=== PATIENT | female | born 1980 | race African-American/Black ===

== ENCOUNTER 2020-04-30 16:37 | Outpatient (REF) | payer OTHER, SELFPAY | END 2020-04-30 16:38 | disposition home or self-care (01) | LOC: HO.LAB 16:37 | PROVIDERS: Visit Provider Internal Medicine | DX: Z20.828 Contact with and (suspected) exposure to other viral communicable diseases (principal) | CPT/HCPCS: C9803; U0003 ==

== ENCOUNTER 2020-05-10 09:38 | Outpatient (REF) | payer OTHER, SELFPAY | END 2020-05-10 09:39 | disposition home or self-care (01) | LOC: HO.LAB 09:38 | PROVIDERS: Visit Provider Internal Medicine | DX: Z20.828 Contact with and (suspected) exposure to other viral communicable diseases (principal) | CPT/HCPCS: C9803; U0003 ==

== ENCOUNTER 2020-08-02 13:18 | Outpatient (REF) | payer OTHER, SELFPAY | END 2020-08-02 13:19 | disposition home or self-care (01) | LOC: HO.LAB 13:18 | PROVIDERS: Visit Provider Internal Medicine | DX: Z20.822 Contact with and (suspected) exposure to COVID-19 (principal) | CPT/HCPCS: 36415; C9803; U0003; U0005 ==

== ENCOUNTER → 2020-10-01 08:35 | Outpatient (BNVA) | payer OTHER, SELFPAY | PROVIDERS: PCP Nurse Practitioner Family; Visit Provider Surgery | DX: E66.01 Morbid (severe) obesity due to excess calories (principal); Z68.41 Body mass index [BMI] 40.0-44.9, adult | CPT/HCPCS: Q3014 ==

== ENCOUNTER → 2020-10-04 13:34 | Outpatient (REF) | payer OTHER, SELFPAY ==
--- NOTE | ~2020-10-04 | XR_ITS ---
EXAMINATION: XR CHEST CLINICAL INFORMATION: Obesity COMPARISON: Previous chest x-ray June 2018 TECHNIQUE: 2 views of the chest were obtained. FINDINGS: No significant abnormality is noted involving the heart, lungs, mediastinum, bony thorax or soft tissues. XR/XR chest 2V IMPRESSION: Unremarkable examination.
--- NOTE | 2020-10-04 14:24 | ECG_ITS ---
Test Reason : E66.01 Blood Pressure : / mmHG Vent. Rate : 076 BPM Atrial Rate : 076 BPM P-R Int : 118 ms QRS Dur : 078 ms QT Int : 390 ms P-R-T Axes : 067 071 045 degrees QTc Int : 438 ms Sinus rhythm with marked sinus arrhythmia Otherwise normal ECG No previous ECGs available Referred By: Samir Villafuerte Electronically Signed By:Delvis Hayden
[2020-10-04 14:50] LABS: MANUAL DIFF FLAG NO
[2020-10-04 14:53] LABS: Basophils Percent Auto 0.6 % (0-2); Eosinophils Absolute Auto 0.2 X10*3/uL (0.0-0.4); Eosinophils Percent Auto 4.2 % (0-4); Hematocrit 38.4 % (37-47); Imm Gran Abs Auto 0.01 X10*3/uL (0.00-0.03); Imm Gran Pct Auto 0.2 % (0.0-0.4); Lymphocytes Percent Auto 41.6 % (20-40); Mean Corpuscular HGB Conc 33.9 g/dl (31.0-35.0); Mean Corpuscular Volume 82.8 fL (80-98); Mean Platelet Volume 11.6 fL (9.4-12.3); Monocytes Absolute Auto 0.3 X10*3/uL (0.1-1.2); Monocytes Percent Auto 6.2 % (2-11); Neutrophils Absolute Auto 2.2 X10*3/uL (2.0-8.3); Neutrophils Percent Auto 47.2 % (45-73); Platelet Count 222 X10*3/uL (160-400); Red Blood Count 4.64 X10*6/uL (4.20-5.50); Red Cell Distribution Width 13.2 % (11.0-16.0); White Blood Count 4.7 X10*3/uL (4.8-10.8)
[2020-10-04 15:03] LABS: Estimated Average Glucose 108 mg/dL; Hemoglobin A1c % 5.4 %
[2020-10-04 15:16] LABS: Alanine Aminotransferase 25 U/L (0-31); Alkaline Phosphatase 66 U/L (39-117); Anion Gap 13 (12-20); Aspartate Amino Transferase 19 U/L (5-31); Bilirubin Total 1.9 mg/dL (0.0-1.0); Blood Urea Nitrogen 15 mg/dL (9-16); C Reactive Protein 0.21 mg/dL (< or = 0.50); Calcium 8.8 mg/dL (8.4-10.2); Carbon Dioxide 25 mmol/L (22-29); Chloride 108 mmol/L (96-108); Cholesterol 243 mg/dL; Estimated Glomerular Filt Rate > 60; Glucose Random 91 mg/dL (60-115); HDL Cholesterol 74 mg/dL; Iron 84 mcg/dL (30-160); LDL Cholesterol Calculated 144 mg/dl; Percent Iron Saturation 24 % (15-50); Potassium 4.2 mmol/L (3.3-5.1); Sodium 142 mmol/L (135-145); Total Iron Binding Capacity 348 mcg/dL (228-428); Total Protein 6.8 g/dL (6.5-8.0); Triglycerides 129 mg/dL; Unsaturated Iron Binding 264 ug/dL
[2020-10-04 15:39] LABS: Ferritin 23 ng/mL (10-122); TSH reflex Free T4 1.65 uIU/mL (0.32-4.0); Vitamin D 25-OH Total 13.1 ng/mL (>30)
[2020-10-04 15:46] LABS: Folate 8.1 ng/mL (> or = 4.0); Vitamin B12 370 pg/mL (200-900)
[2020-10-05 08:51] LABS: Insulin Level Total 7.8 uIU/mL
[2020-10-05 14:11] LABS: H Pylori Breath Test NOT DETECTED (NOT DETECTED)
[2020-10-05 19:47] LABS: Calcium (PTHI) 9.1 mg/dL (8.6-10.2); PTHI 115 pg/mL (14-64)
[2020-10-07 06:51] LABS: Zinc 74 mcg/dL (60-130)
[2020-10-07 23:03] LABS: Vitamin A 75 mcg/dL (38-98)
[2020-10-08 11:56] LABS: Vitamin B1 12 nmol/L (8-30)
== END ==
LOC: HO.CARD 13:34
PROVIDERS: Surgery; PCP Nurse Practitioner Family; Referring Provider General Practice; Visit Provider Physician Assistant
DX: E66.01 Morbid (severe) obesity due to excess calories (principal)
CPT/HCPCS: 36415; 71046; 80053; 80061; 82306; 82607; 82728; 82746; 83013; 83036; 83525; 83540; 83970; 84425; 84443; 84590; 84630; 85025; 86140; 93005; 99211

== ENCOUNTER 2020-10-21 08:39 | Outpatient (REF) | payer OTHER, SELFPAY ==
--- NOTE | ~2020-10-21 | US_ITS ---
EXAMINATION: US COMPLETE ABDOMEN WITH LIVER ELASTOGRAPHY CLINICAL INFORMATION: Bariatric service evaluation. E66.01 COMPARISON: None. TECHNIQUE: Real-time imaging of the abdominal viscera. Noninvasive ultrasound liver fibrosis assessment is performed using Steph ElastPQ point quantification shear wave elastography (pSWE) with a C5-2 MHz transducer. Multiple elastography samples are obtained. FINDINGS: PANCREAS: The visualized pancreas is normal in size and contour and echogenicity. No pancreatic ductal distention. The distal body and tail are obscured by bowel gas and not imaged. ABDOMINAL AORTA: The proximal and mid abdominal aorta appears normal in caliber. The distal ureter is obscured by bowel gas and not imaged. INFERIOR VENA CAVA: Visualized portions are normal. LIVER: The liver is within normal size and smooth in contour. Parenchymal echogenicity is within normal. There is no focal hepatic parenchymal lesion or intrahepatic biliary ductal dilatation. The right lobe measures 17.1 cm in length. The left lobe measures 13.9 cm in length. Portal flow is towards the liver (hepatopetal). Shear wave liver elastography median stiffness is 1.25 m/s (reference: normal median stiffness is 1.3 m/s or less). IQR/median stiffness to assess sampling precision is 0.16 (reference: good quality data set is IQR/median stiffness of 0.15 or less). GALLBLADDER: There are mobile dependent calculi in the gallbladder. There is no gallbladder dilatation or wall thickening or pericholecystic fluid. Negative sonographic Miller's sign. COMMON BILE DUCT: Normal in caliber measuring 0.6 cm in diameter. No visible ductal calculus or ductal sludge. RIGHT KIDNEY: Normal. No hydronephrosis. No renal calculi or focal parenchymal lesions. The kidney measures 10.2 cm in maximum dimension. LEFT KIDNEY: Normal. No hydronephrosis. No renal calculi or focal parenchymal lesions. The kidney measures 9.6 cm in maximum dimension. SPLEEN: Normal. The spleen measures 9.7 cm in maximum dimension. FREE FLUID: None. US/US abdomen comp w elastography IMPRESSION: 1. Cholelithiasis. No gallbladder wall thickening or ductal dilatation. 2. Liver elastography: Measurements are consistent with a high probability of normal liver stiffness. 3. Bowel gas obscures portions of pancreas and distal abdominal aorta. REFERENCE: Society of Radiologists in Ultrasound Liver Stiffness Thresholds (2019): LIVER STIFFNESS THRESHOLDS: *Liver Stiffness equal or less than 1.3 m/s: High probability of being normal. *Liver Stiffness less than 1.7 m/s: In the absence of other known clinical signs, rules out compensated advanced chronic liver disease. *Liver Stiffness 1.7-2.1 m/s: Suggestive of compensated advanced chronic liver disease but need further test for confirmation. *Liver Stiffness over 2.1 m/s: Rules in compensated advanced chronic liver disease. *Liver Stiffness over 2.4 m/s: Suggestive of clinically significant portal hypertension.
== END 2020-10-21 08:40 | disposition home or self-care (01) ==
LOC: HO.US 08:39
PROVIDERS: Visit Provider Surgery
DX: Z01.818 Encounter for other preprocedural examination (principal); E66.01 Morbid (severe) obesity due to excess calories; K21.9 Gastro-esophageal reflux disease without esophagitis
CPT/HCPCS: 76705; 76981

== ENCOUNTER → 2020-10-22 08:33 | Outpatient (BNVA) | payer OTHER, SELFPAY | PROVIDERS: PCP Nurse Practitioner Family; Visit Provider Dietitian, Registered | DX: E66.01 Morbid (severe) obesity due to excess calories (principal); Z68.41 Body mass index [BMI] 40.0-44.9, adult | CPT/HCPCS: 97802 ==

== ENCOUNTER → 2020-10-27 08:24 | Outpatient (BNVA) | payer OTHER, SELFPAY | PROVIDERS: PCP Nurse Practitioner Family; Visit Provider Surgery | DX: E66.01 Morbid (severe) obesity due to excess calories (principal); Z68.41 Body mass index [BMI] 40.0-44.9, adult; Z71.3 Dietary counseling and surveillance | CPT/HCPCS: Q3014 ==

== ENCOUNTER 2020-11-02 08:14 | Outpatient (REF) | payer OTHER, SELFPAY ==
--- NOTE | ~2020-11-02 | FL_ITS ---
EXAMINATION: XR GI SERIES CLINICAL INFORMATION: Obesity. COMPARISON: None TECHNIQUE: Upper GI was performed using thin and thick barium and effervescent granules. FINDINGS: Esophageal motility is normal. No gastroesophageal reflux or hernia is seen. The stomach and duodenum are normal-appearing. No fold thickening, mass, ulcer or stricture is seen. FLUOROSCOPY TIME: 0.6 minutes DOSE AREA PRODUCT: 10 ellis per centimeter squared. 20 saved fluoroscopic images. Total dose 36 mgy. FL/FL upper GI series IMPRESSION: Unremarkable examination.
== END 2020-11-02 08:15 | disposition home or self-care (01) ==
LOC: HO.XRAY 08:14
PROVIDERS: PCP General Practice; Visit Provider Surgery
DX: Z01.818 Encounter for other preprocedural examination (principal); E66.01 Morbid (severe) obesity due to excess calories; K21.9 Gastro-esophageal reflux disease without esophagitis
CPT/HCPCS: 74240

== ENCOUNTER 2020-11-08 13:05 | Outpatient (REF) | payer OTHER, SELFPAY ==
--- NOTE | ~2020-11-08 | MM_ITS ---
EXAMINATION: MM DIAGNOSTIC DIGITAL BREAST TOMOSYNTHESIS, BILATERAL CLINICAL INFORMATION: Due for yearly. 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 No known family history breast cancer. Age 40. The lifetime risk of breast cancer based on the Tyrer-Cuzick Model is 12%. COMPARISON: Mammography: 11/05/2019, 05/06/2019, 4 03/19/2019 (baseline diagnostic). TECHNIQUE: Digital breast tomosynthesis is performed in both the craniocaudal and mediolateral oblique views along with computer-aided detection (CAD). Synthesized 2D images are generated from the tomosynthesis. Additional views are provided: Left CC x2, left MLO x2, right CC, right MLO x2. FINDINGS: The breasts are almost entirely fatty (ACR BI-RADS breast composition Category a). Background stromal and fibroglandular densities are stable. The duct ectasia anterior right breast is similar to prior studies and now considered benign. There is no developing density or interval mass or architectural abnormality. No abnormal calcifications. The axilla and skin contours are unremarkable. Results are provided to the patient at time of visit by the technologist. MM/MM tomosynthesis diagnostic BI IMPRESSION: There are no significant changes from prior studies. Right anterior duct ectasia stable. ASSESSMENT: BI-RADS 2: Benign RECOMMENDATION: Routine annual mammography screening, by age 40, or earlier as clinical risk factors warrant. This patient's information was entered into a reminder system with a target due date for their next mammogram.
== END 2020-11-08 13:06 | disposition home or self-care (01) ==
LOC: HO.MAMMO 13:05
PROVIDERS: PCP General Practice; Visit Provider Nurse Practitioner Family
DX: N60.41 Mammary duct ectasia of right breast (principal)
CPT/HCPCS: 77062; 77066

== ENCOUNTER → 2020-12-06 07:06 | Outpatient (BNVA) | payer OTHER, SELFPAY | PROVIDERS: PCP General Practice; Visit Provider Surgery | DX: E66.01 Morbid (severe) obesity due to excess calories (principal); Z68.41 Body mass index [BMI] 40.0-44.9, adult | CPT/HCPCS: Q3014 ==

== ENCOUNTER → 2020-12-22 08:09 | Outpatient (BNVA) | payer OTHER, SELFPAY | PROVIDERS: PCP General Practice; Visit Provider Dietitian, Registered ==

== ENCOUNTER → 2020-12-24 09:52 | Outpatient (BNVA) | payer OTHER, SELFPAY | PROVIDERS: PCP General Practice; Referring Provider General Practice; Visit Provider Dietitian, Registered ==

== ENCOUNTER → 2021-01-19 07:46 | Outpatient (BNVA) | payer OTHER, SELFPAY | PROVIDERS: PCP General Practice; Visit Provider Surgery | CPT/HCPCS: Q3014 ==

== ENCOUNTER → 2021-01-20 08:21 | Outpatient (BNVA) | payer OTHER, SELFPAY | PROVIDERS: PCP General Practice; Visit Provider Physician Assistant ==

== ENCOUNTER → 2021-01-24 09:37 | Outpatient (BNVA) | payer OTHER, SELFPAY | PROVIDERS: Visit Provider Physician Assistant ==

== ENCOUNTER → 2021-01-25 08:39 | Outpatient (BNVA) | payer OTHER, SELFPAY | PROVIDERS: Visit Provider Dietitian, Registered | DX: E66.01 Morbid (severe) obesity due to excess calories (principal) | CPT/HCPCS: 97803 ==

== ENCOUNTER → 2021-02-07 14:04 | Outpatient (BNVA) | payer OTHER, SELFPAY | PROVIDERS: PCP General Practice; Referring Provider General Practice; Visit Provider Physician Assistant Surgical ==

== ENCOUNTER → 2021-02-14 08:13 | Outpatient (BNVA) | payer OTHER, SELFPAY | PROVIDERS: PCP General Practice; Visit Provider Physician Assistant | DX: E66.01 Morbid (severe) obesity due to excess calories (principal); Z68.41 Body mass index [BMI] 40.0-44.9, adult | CPT/HCPCS: Q3014 ==

== ENCOUNTER → 2021-02-15 08:19 | Outpatient (BNVA) | payer OTHER, SELFPAY | PROVIDERS: Visit Provider Physician Assistant ==

== ENCOUNTER 2021-02-18 14:24 | Emergency (ER) | payer OTHER, SELFPAY ==
--- NOTE | ~2021-02-18 | XR_ITS ---
EXAMINATION: XR CHEST CLINICAL INFORMATION: SOB. COMPARISON: None TECHNIQUE: Frontal view of the chest was obtained. FINDINGS: No significant abnormality is noted involving the heart, lungs, mediastinum, bony thorax or soft tissues. XR/XR chest 1V IMPRESSION: Unremarkable chest exam.
--- NOTE | ~2021-02-18 | CT_ITS ---
EXAMINATION: CT ANGIOGRAM OF THE CHEST WITH AND WITHOUT CONTRAST (CT PULMONARY ANGIOGRAM FOR PE) CLINICAL INFORMATION: Reason for Exam SOB, elevated ddimer COMPARISON: None TECHNIQUE: Prior to contrast administration, noncontrast localization images were obtained. Subsequently, multidetector volumetric imaging was performed from the thoracic inlet to below the diaphragms following the administration of 80 mL Omnipaque 350 intravenous contrast. No contrast reaction reported Sagittal, coronal, and MIP oblique sagittal reformatted images were obtained on the CT workstation, uploaded to PACS, and reviewed. This CT examination was performed using dose optimization techniques as appropriate, variously including the following: *Automated exposure control *Adjustment of mA and/or kV according to patient size (this includes techniques or standardized protocols for targeted exams where dose is matched to indication/reason for exam; i.e. extremities or head) *Use of iterative reconstruction technique Total exam dose-length product 537 mGy-cm FINDINGS: QUALITY OF STUDY/CONTRAST BOLUS: Satisfactory. PULMONARY ARTERIES: No central or segmental pulmonary emboli. THORACIC AORTA: No aneurysm or dissection. LUNG: The lungs are well-expanded and clear of acute pneumonic process. There is platelike atelectasis in left lung base. There is platelike atelectasis left lower lobe posterior segment. PLEURA: No pleural effusion or pneumothorax. MEDIASTINUM: The thyroid lobes are symmetrical. The central trachea and the bronchi are widely patent. No abnormal size mediastinal or hilar lymph nodes. No pedicle effusion. No evidence of septal bowing or right heart strain. CHEST WALL/AXILLA: No axillary or internal mammary lymphadenopathy. OSSEOUS STRUCTURES: No acute or suspicious osseous abnormality. UPPER ABDOMEN: Visualized liver, spleen, pancreas and bilateral adrenal glands are unremarkable. No reflux of contrast into the hepatic veins to suggest elevated right heart pressures. CT/CT angio chest PE protocol IMPRESSION: No evidence of PE. No evidence of aortic dissection or aneurysm. Platelike atelectasis left lower lobe posterior segment VTE: Negative.
[2021-02-18 14:36] VITALS: BP 126/75; PULSE 100; RESP 30; TEMP 36.6; O2SAT 99; BMI 41.3
--- NOTE | 2021-02-18 14:37 | ED_ITS ---
HPI - Asthma General Chief Complaint: Asthma Stated Complaint: ASTHMA DIFF BREATHING Time Seen by Provider: 02/18/21 14:37 Source: patient Mode of arrival: ambulatory Limitations: no limitations History of Present Illness HPI Narrative: 40-year-old female presents with 2 days of wheezing and shortness of breath that she attributes to her asthma. Patient states that the recent humidity has increased her asthma and she often responses sway with an asthma exacerbation. Patient did work today, she works in a preschool, so her last nebulizer treatment was 7:00 a.m. this morning. Patient has been using her albuterol inhaler all day, and now she is almost out of it. Patient has had to go on prednisone burst in the past for her asthma No upper respiratory infection symptoms, no cough, no runny nose, no sore throat or ear pain, no fevers . She is not a smoker. No recent travel, no leg pain, no unilateral calf swelling, no estrogen use, no history of blood clots. Patient is vaccinated for COVID. MD complaint: asthma attack Onset (ago): day(s) (2) Severity: severe and similar to prior Context: other (wearther change/humidity) Associated symptoms: none Asthma History: history of frequent attacks Treatments Prior to Arrival: inhaled bronchodilator Related Data Current Asthma Therapy: inhaled bronchodilator Home Medications Medication Instructions Recorded Confirmed albuterol sulfate 90 mcg/actuation 2 puff INHALATION Q6H PRN 10/01/20 10/01/20 aerosol inhaler clonazepam 0.5 mg tablet 0.25 mg PO BEDTIME 10/01/20 10/01/20 oxcarbazepine 600 mg 600 mg PO DAILY 10/01/20 10/01/20 tablet,extended release 24 hr Previous Rx's Medication Instructions Recorded cholecalciferol (vitamin D3) 125 125 mcg PO DAILY #30 cap 10/08/20 mcg (5,000 unit) capsule mecobalamin (vitamin B12) 1,000 1,000 mcg SUBLINGUAL DAILY #30 tab 10/08/20 mcg disintegrating tablet,sublingual albuterol sulfate 90 mcg/actuation 2 puff INHALATION Q4-6H PRN #8.5 g 02/18/21 aerosol inhaler prednisone 20 mg tablet 60 mg PO DAILY 5 Days #15 tab 02/18/21 Allergies Allergy/AdvReac Type Severity Reaction Status Date / Time No Known Allergies Allergy Verified 02/18/21 14:39 [No Known Allergies*] Review of Systems Constitutional: Constitutional: Denies body ache(s), Denies chills, Denies fatigue, Denies fever(s), Denies headache(s), Denies malaise and Denies weakness Eyes: Eyes: Denies diplopia ENT: Denies vertigo, Denies dizziness, Denies otalgia, Denies headache(s), Denies mouth pain, Denies post nasal drip, Denies sinus pain, Denies sinus pressure, Denies sore throat and Denies throat swelling Cardiovascular: Cardiovascular: Denies chest pain, Denies syncope, Denies leg edema, Denies lightheadedness, Denies Loss of Consciousness, Denies palpitations and Reports dyspnea Respiratory: Respiratory: Denies chest congestion, Denies cough, Reports dyspnea and Reports wheezing Gastrointestinal: Gastrointestinal: Reports abdominal pain, Denies hematochezia, Denies constipation, Denies diarrhea and Denies vomiting Musculoskeletal: Musculoskeletal: Reports no additional musculoskeletal complaints Neurologic: Denies confusion, Denies vertigo, Denies dizziness, Denies syncope, Denies headache(s) and Denies weakness Psychiatric: Psychiatric: Denies anxiety, Denies confusion and Denies depression Endocrine: Endocrine: Denies fatigue and Denies palpitations Allergic/Immunologic: Allergic/Immunologic: Denies throat swelling and Reports wheezing PMFSH Past Medical History Medical History Anxiety Asthma Back pain Insomnia Morbid obesity Surgical History Hx of section Family History Family History (Updated 10/01/20 @ 07:29 by SESAR Rodriguez) Mother Hypertension Diabetes Father No problems noted. Sister No problems noted. Son No problems noted. Daughter No problems noted. Social History Social History (Updated 10/01/20 @ 07:29 by SESAR Rodriguez) Alcohol intake: current Alcohol intake frequency: a few times a month Advance Directives: No Advance Directives Information Provided: Yes Patient : No Physical Exam Vital Signs: Vital Signs: Last Vital Signs Temp 97.8 F 02/18/21 14:36 Pulse 82 02/18/21 16:52 Resp 19 02/18/21 16:52 BP 109/77 02/18/21 16:52 Pulse Ox 96 02/18/21 16:52 Body Mass Index 41.3 Const: General: alert, awake and acute distress mild and respiratory; No confusion Nutritional Appearance: obese centrally obese Orientation/consciousness: patient oriented x3 and No confusion Limitations: no limitations HENMT: Head: Yes normal to inspection, Yes normocephalic and Yes atraumatic Ears: hearing grossly normal bilaterally, external ears normal, TM's normal bilaterally and EAC's normal General nose exam: Normal external nose present Face and sinus: Yes normal facial exam and Yes sinuses nontender Mouth: N ormal oral and palatal mucosa present Throat: Yes posterior oropharynx normal Eyes: Conjunctivae: conjunctivae normal Pupils: Equal, round and reactive pupils present EOM: EOMs intact bilaterally Neck: Neck: Yes full ROM, Yes no lymphadenopathy and Yes supple Resp: Effort & Inspection: able to speak in complete sentences, no audible wheezes, no cough, no nasal flaring, no pursed lip breathing, retractions, tachypneic and no tripod positioning Auscultation: diminished lung sounds (only mildly) diffuse Cardio: Rate: regular rate Rhythm: regular rhythm Heart sounds: S1 normal heart sound present and S2 normal heart sound present Skin: General skin exam: no rashes or lesions noted Neuro: General: patient oriented x3 and No confusion Cranial nerves: Yes Equal, round and reactive pupils present Extrem: General: Yes normal to inspection and Yes full ROM Psych: Appearance: grossly normal Mental Status: mental status grossly normal Speech and movement: Normal speech and movement present Affect: Anxious affect present Attitude: cooperative Thought process: Normal thought process present Course Course Course Narrative: 5-year-old female presents with which she feels is an asthma attack. On exam, patient is tachypneic with a respiration rate of 30, mild retractions, satting 100% on room air Lungs are only mildly diminished, no wheezes, rales, or rhonchi noted. Patient is anxious and tearful. Will get chest x-ray, test for COVID, D-dimer and CBC. Gave Solu-Medrol and lorazepam. Patient's D-dimer returned positive, will CTA chest Reevaluation(s) Reevaluation #1: COVID is negative, labs are unremarkable, chest x-ray is negative, CT angio is negative for pulmonary emboli . Patient is feeling better after Solu-Medrol and breathing treatment. Will discharge home with prednisone and refill of albuterol inhaler. MDM - Asthma Lab Data Result diagrams: 02/18/21 14:52 02/18/21 15:30 Labs: Lab Results 02/18/21 02/18/21 02/18/21 Range/Units 14:52 14:53 14:53 WBC 6.3 (4.8-10.8) X10*3/uL RBC 4.63 (4.20-5.50) X10*6/uL Hgb 13.0 (12.0-16.0) g/dl Hct 38.2 (37-47) % MCV 82.5 (80-98) fL MCH 28.1 (27.0-33.0) pg MCHC 34.0 (31.0-35.0) g/dl RDW 13.4 (11.0-16.0) % Plt Count 252 (160-400) X10*3/uL MPV 11.2 (9.4-12.3) fL Immature Gran % (Auto) 0.3 (0.0-0.4) % Neut % (Auto) 62.6 (45-73) % Lymph % (Auto) 24.6 (20-40) % Shelby % (Auto) 7.4 (2-11) % Eos % (Auto) 4.8 H (0-4) % Baso % (Auto) 0.3 (0-2) % Lymph # (Auto) 1.5 (1.2-4.9) X10*3/uL Shelby # (Auto) 0.5 (0.1-1.2) X10*3/uL Eos # (Auto) 0.3 (0.0-0.4) X10*3/uL Baso # (Auto) 0.0 (0.0-0.2) X10*3/uL Abs Immat Gran (auto) 0.02 (0.00-0.03) X10*3/uL Absolute Neuts (auto) 3.9 (2.0-8.3) X10*3/uL Absolute Nucleated RBC 0.000 (0.0-0.012) X10*3/uL Nucleated RBC % (auto) 0.0 (0.0-0.2) /100WBC D-Dimer 264 NG/ML Sodium (135-145) mmol/L Potassium (3.3-5.1) mmol/L Chloride (96-108) mmol/L Carbon Dioxide (22-29) mmol/L Anion Gap (12-20) BUN (9-16) mg/dL Creatinine (0.5-1.4) mg/dL Estim Creat Clear Calc Estimated GFR Random Glucose (60-115) mg/dL Calcium (8.4-10.2) mg/dL Total Bilirubin (0.0-1.0) mg/dL AST (5-31) U/L ALT (0-31) U/L Alkaline Phosphatase (39-117) U/L Total Protein (6.5-8.0) g/dL Albumin (3.5-5.0) g/dL Urine Test (NEGATIVE) COVID-19 (TIAN) Negative (Negative) COVID-19 Clin Com See Note 02/18/21 02/18/21 Range/Units 15:27 15:30 WBC (4.8-10.8) X10*3/uL RBC (4.20-5.50) X10*6/uL Hgb (12.0-16.0) g/dl Hct (37-47) % MCV (80-98) fL MCH (27.0-33.0) pg MCHC (31.0-35.0) g/dl RDW (11.0-16.0) % Plt Count (160-400) X10*3/uL MPV (9.4-12.3) fL Immature Gran % (Auto) (0.0-0.4) % Neut % (Auto) (45-73) % Lymph % (Auto) (20-40) % Shelby % (Auto) (2-11) % Eos % (Auto) (0-4) % Baso % (Auto) (0-2) % Lymph # (Auto) (1.2-4.9) X10*3/uL Shelby # (Auto) (0.1-1.2) X10*3/uL Eos # (Auto) (0.0-0.4) X10*3/uL Baso # (Auto) (0.0-0.2) X10*3/uL Abs Immat Gran (auto) (0.00-0.03) X10*3/uL Absolute Neuts (auto) (2.0-8.3) X10*3/uL Absolute Nucleated RBC (0.0-0.012) X10*3/uL Nucleated RBC % (auto) (0.0-0.2) /100WBC D-Dimer NG/ML Sodium 143 (135-145) mmol/L Potassium 3.7 (3.3-5.1) mmol/L Chloride 112 H (96-108) mmol/L Carbon Dioxide 23 (22-29) mmol/L Anion Gap 12 (12-20) BUN 13 (9-16) mg/dL Creatinine 0.90 (0.5-1.4) mg/dL Estim Creat Clear Calc 113.5 Estimated GFR > 60 Random Glucose 96 (60-115) mg/dL Calcium 9.5 D (8.4-10.2) mg/dL Total Bilirubin 2.0 H (0.0-1.0) mg/dL AST 13 (5-31) U/L ALT 20 (0-31) U/L Alkaline Phosphatase 61 (39-117) U/L Total Protein 6.9 (6.5-8.0) g/dL Albumin 4.1 (3.5-5.0) g/dL Urine Test NEGATIVE (NEGATIVE) COVID-19 (TIAN) (Negative) COVID-19 Clin Com Discharge Plan Discharge Clinical Impression: Asthma with acute exacerbation Qualifiers: Asthma severity: moderate Asthma persistence: persistent Qualified Code(s): J45.41 - Moderate persistent asthma with (acute) exacerbation Patient Disposition: Home, Self-Care Instructions: Asthma (ED) Additional Instructions: Please fill your prescription for prednisone and albuterol inhaler, start your inhaler today. Take 2 puffs every 4 hours or use your nebulizer every 4 hours for the next 3 or 4 days. Take your prednisone starting tomorrow morning. Please return to emergency room if you have any worsening shortness of breath, fevers, or any other new or concerning symptoms. Prescriptions: New albuterol sulfate 90 mcg/actuation HFA aerosol inhaler 2 puff inhalation Q4-6H PRN (Reason: shortness of breath or wheezing) Qty: 8.5 RF: 1 prednisone 20 mg tablet 60 mg PO DAILY 5 Days Qty: 15 RF: 0 No Action cholecalciferol (vitamin D3) 125 mcg (5,000 unit) capsule 125 mcg PO DAILY Qty: 30 RF: 2 mecobalamin (vitamin B12) 1,000 mcg tablet,disintegrating 1,000 mcg sublingual DAILY Qty: 30 RF: 2 albuterol sulfate 90 mcg/actuation HFA aerosol inhaler 2 puff inhalation Q6H PRNRF: 0 clonazepam 0.5 mg tablet 0.25 mg PO BEDTIME RF: 0 oxcarbazepine 600 mg tablet extended release 24 hr 600 mg PO DAILY RF: 0
[2021-02-18] MEDS: methylPREDNISolone Sod Succ 125 MG/2 ML VIAL IVPUSH (14:48)
[2021-02-18 14:59] LABS: MANUAL DIFF FLAG NO
[2021-02-18 15:00] LABS: Basophils Percent Auto 0.3 % (0-2); Eosinophils Absolute Auto 0.3 X10*3/uL (0.0-0.4); Eosinophils Percent Auto 4.8 % (0-4); Hematocrit 38.2 % (37-47); Imm Gran Abs Auto 0.02 X10*3/uL (0.00-0.03); Imm Gran Pct Auto 0.3 % (0.0-0.4); Lymphocytes Absolute Auto 1.5 X10*3/uL (1.2-4.9); Lymphocytes Percent Auto 24.6 % (20-40); Mean Corpuscular Hemoglobin 28.1 pg (27.0-33.0); Mean Corpuscular Volume 82.5 fL (80-98); Mean Platelet Volume 11.2 fL (9.4-12.3); Monocytes Absolute Auto 0.5 X10*3/uL (0.1-1.2); Monocytes Percent Auto 7.4 % (2-11); Neutrophils Absolute Auto 3.9 X10*3/uL (2.0-8.3); Neutrophils Percent Auto 62.6 % (45-73); Platelet Count 252 X10*3/uL (160-400); Red Blood Count 4.63 X10*6/uL (4.20-5.50); Red Cell Distribution Width 13.4 % (11.0-16.0); White Blood Count 6.3 X10*3/uL (4.8-10.8)
[2021-02-18] MEDS: LORazepam 2 MG/ML VIAL 0.5 MG IVPUSH (15:04)
[2021-02-18 15:08] LABS: D Dimer 264 NG/ML
[2021-02-18 15:21] LABS: COVID-19 Test Negative (Negative)
[2021-02-18] MEDS: 0.9 % Sodium Chloride 1,000 ML 999 ML IV (15:32)
[2021-02-18 15:43] LABS: UPreg QC Valid YES; Urine Pregnancy NEGATIVE (NEGATIVE)
[2021-02-18 15:53] LABS: Alanine Aminotransferase 20 U/L (0-31); Albumin Level 4.1 g/dL (3.5-5.0); Alkaline Phosphatase 61 U/L (39-117); Anion Gap 12 (12-20); Aspartate Amino Transferase 13 U/L (5-31); Blood Urea Nitrogen 13 mg/dL (9-16); Calcium 9.5 mg/dL (8.4-10.2); Carbon Dioxide 23 mmol/L (22-29); Chloride 112 mmol/L (96-108); Creatinine Clr Calc Pharmacy 113.5; Estimated Glomerular Filt Rate > 60; Glucose Random 96 mg/dL (60-115); Potassium 3.7 mmol/L (3.3-5.1); Sodium 143 mmol/L (135-145); Total Protein 6.9 g/dL (6.5-8.0)
[2021-02-18] MEDS: iohexoL 350 MG/ML 100 ML INFUS..BTL IV (16:17)
[2021-02-18 16:52] VITALS: BP 109/77; PULSE 82; RESP 19; O2SAT 96
[2021-02-18 17:51] VITALS: O2SAT 96
== END 2021-02-18 17:55 | disposition home or self-care (01) ==
PROVIDERS: Physician Assistant; Emergency Provider Emergency Medicine
DX: J45.41 Moderate persistent asthma with (acute) exacerbation (principal); R06.02 Shortness of breath; Z20.822 Contact with and (suspected) exposure to COVID-19; Z79.899 Other long term (current) drug therapy
CPT/HCPCS: 36415; 71045; 71275; 80053; 81025; 85025; 85379; 87635; 96361; 96374; 96375; 99284; J2060; J2930; Q9967

== ENCOUNTER → 2021-02-21 08:27 | Outpatient (BNVA) | payer OTHER, SELFPAY | PROVIDERS: Visit Provider Physician Assistant Surgical ==

== ENCOUNTER → 2021-02-25 09:53 | Outpatient (BNVA) | payer OTHER, SELFPAY | PROVIDERS: PCP General Practice; Referring Provider General Practice; Visit Provider Physician Assistant Surgical ==

== ENCOUNTER → 2021-02-28 14:26 | Outpatient (BNVA) | payer OTHER, SELFPAY | PROVIDERS: PCP General Practice; Referring Provider General Practice; Visit Provider Physician Assistant ==

== ENCOUNTER → 2021-03-04 14:05 | Outpatient (BNVA) | payer OTHER, SELFPAY | PROVIDERS: PCP General Practice; Referring Provider General Practice; Visit Provider Physician Assistant Surgical ==

== ENCOUNTER → 2021-03-11 08:15 | Outpatient (BNVA) | payer OTHER, SELFPAY | PROVIDERS: PCP General Practice; Referring Provider General Practice; Visit Provider Physician Assistant Surgical ==

== ENCOUNTER → 2021-03-14 08:02 | Outpatient (BNVA) | payer OTHER, SELFPAY | PROVIDERS: PCP General Practice; Visit Provider Surgery | DX: E66.01 Morbid (severe) obesity due to excess calories (principal); Z68.41 Body mass index [BMI] 40.0-44.9, adult | CPT/HCPCS: Q3014 ==

== ENCOUNTER → 2021-03-18 15:13 | Outpatient (BNVA) | payer OTHER, SELFPAY | PROVIDERS: PCP General Practice; Referring Provider General Practice; Visit Provider Physician Assistant Surgical ==

== ENCOUNTER → 2021-03-22 14:07 | Outpatient (BNVA) | payer OTHER, SELFPAY | PROVIDERS: PCP General Practice; Referring Provider General Practice; Visit Provider Physician Assistant Surgical ==

== ENCOUNTER → 2021-03-25 14:39 | Outpatient (BNVA) | payer OTHER, SELFPAY | PROVIDERS: PCP General Practice; Referring Provider General Practice; Visit Provider Physician Assistant Surgical ==

== ENCOUNTER → 2021-03-29 13:56 | Outpatient (BNVA) | payer OTHER, SELFPAY | PROVIDERS: PCP General Practice; Referring Provider General Practice; Visit Provider Physician Assistant Surgical ==

== ENCOUNTER → 2021-04-01 15:01 | Outpatient (BNVA) | payer OTHER, SELFPAY | PROVIDERS: PCP General Practice; Referring Provider General Practice; Visit Provider Physician Assistant ==

== ENCOUNTER → 2021-04-05 08:26 | Outpatient (BNVA) | payer OTHER, SELFPAY | PROVIDERS: PCP General Practice; Referring Provider General Practice; Visit Provider Physician Assistant Surgical ==

== ENCOUNTER → 2021-04-08 08:02 | Outpatient (BNVA) | payer OTHER, SELFPAY | PROVIDERS: PCP General Practice; Visit Provider Surgery | DX: E66.01 Morbid (severe) obesity due to excess calories (principal) | CPT/HCPCS: Q3014 ==

== ENCOUNTER 2021-04-19 06:02 | Inpatient (IN) | payer OTHER, SELFPAY ==
[2021-04-12 08:37] VITALS: BMI 39.4
[2021-04-12 15:06] LABS: MANUAL DIFF FLAG NO
[2021-04-12 15:22] LABS: Basophils Percent Auto 0.4 % (0-2); Eosinophils Absolute Auto 0.2 X10*3/uL (0.0-0.4); Eosinophils Percent Auto 3.9 % (0-4); Hematocrit 40.3 % (37.0-47.0); Hemoglobin 13.5 g/dl (12.0-16.0); Lymphocytes Absolute Auto 2.1 X10*3/uL (1.2-4.9); Mean Corpuscular HGB Conc 33.5 g/dl (31.0-35.0); Mean Corpuscular Hemoglobin 27.8 pg (27.0-33.0); Mean Corpuscular Volume 83.1 fL (80.0-98.0); Mean Platelet Volume 11.6 fL (9.4-12.3); Monocytes Absolute Auto 0.3 X10*3/uL (0.1-1.2); Monocytes Percent Auto 5.7 % (2-11); Platelet Count 235 X10*3/uL (160-400); Red Blood Count 4.85 X10*6/uL (4.20-5.50); White Blood Count 4.6 X10*3/uL (4.8-10.8)
[2021-04-12 15:30] LABS: Prothrombin Time 11.5 SEC (9.9-13.0)
[2021-04-12 15:33] LABS: Estimated Average Glucose 105 mg/dL; Hemoglobin A1c % 5.3 %; Partial Thromboplastin Time 35.6 SEC (24.1-38.0)
[2021-04-12 15:44] LABS: Alanine Aminotransferase 18 U/L (0-31); Alkaline Phosphatase 61 U/L (39-117); Anion Gap 10 (12-20); Aspartate Amino Transferase 16 U/L (5-31); Blood Urea Nitrogen 16 mg/dL (9-16); C Reactive Protein 0.29 mg/dL (< or = 0.50); Calcium 9.3 mg/dL (8.4-10.2); Carbon Dioxide 28 mmol/L (22-29); Chloride 108 mmol/L (96-108); Cholesterol 223 mg/dL; Creatinine Clr Calc Pharmacy 110.6; Estimated Glomerular Filt Rate > 60; Glucose Random 103 mg/dL (60-115); HDL Cholesterol 60 mg/dL; LDL Cholesterol Calculated 141 mg/dl; Potassium 4.1 mmol/L (3.3-5.1); Sodium 142 mmol/L (135-145); Total Protein 6.7 g/dL (6.5-8.0); Triglycerides 110 mg/dL
[2021-04-12 16:05] LABS: Insulin 27 uU/mL (2-29); TSH reflex Free T4 0.92 uIU/mL (0.32-4.0)
--- NOTE | 2021-04-16 00:24 | MHC.SHP ---
Pre-Procedural Eval Section A Date of Service: 04/16/21 The patient is an INPATIENT: Yes The History & Physical has been completed within 30 days and I have reviewed it.: Yes Section B Chief Complaint: Obesity Relevant Family History (Specify if Yes): No Relevant Social History: None Present Medications: None Medical History: No relevant PMH History of Previous Operations: No relevant previous surgery Allergies: Allergies Allergy/AdvReac Type Severity Reaction Status Date / Time No Known Allergies Allergy Verified 04/08/21 10:54 [No Known Allergies*] Review of Systems Sugical H&P ROS: Negative: Constitution, Cardiovascular, Respiratory, Neurological, Psychiatric, Hem-Onc, Allergic/Immunologic, Gastrointestinal, Genitourinary, Musculoskeletal, Integumentary, Endocrine and Eyes/Ears/Nose/Throat Exam Surgical H&P Exam: Normal: HEENT, Normal: Heart, Normal: Lungs, Normal: Extremities, Normal: Abdomen, Normal: Skin and Normal: Neurological Plan Diagnosis/Plan: Unchanged I have reviewed the history and physical and performed a pertinent physical examination on my patient. No changes have occurred unless specified.
--- NOTE | 2021-04-18 09:54 | P.CONAN_ITS ---
Documented by User: Jenn Stanton NP 04/18/21 09:55 HPI - Anesthesia Eval Consult details Narrative: 40yo F for Gastrectomy Sleeve, EGD, Possible Diaphragmatic Hernia, Possible Ventral Hernia, Possible open PMFSH Active Problems Active Problems: All Active Problems (Updated 04/12/21 @ 08:31 by Ira Doty, RN) Vitamin D deficiency (Acute) Vitamin B12 deficiency (Acute) Obesity (Acute) BMI 38.0-38.9,adult (Acute) Insomnia (Acute) Back pain (Acute) Anxiety (Acute) Morbid obesity (Acute) Past Medical History Medical History (Updated 04/12/21 @ 08:31 by Ira Doty, [place]) Anxiety Asthma Back pain Depression History of blood transfusion Insomnia Low back pain Morbid obesity Family History Family History (Updated 10/01/20 @ 07:29 by Ifeanyi Cornelius [facility], [facility]) Mother Hypertension Diabetes Father No problems noted. Sister No problems noted. Son No problems noted. Daughter No problems noted. Surgical History Surgical History Hx of section Social History Social History (Updated 04/12/21 @ 08:27 by Ira Doty RN) Are you a primary healthcare specialist to a significant other at home: Yes (children 9+11) Do you presently have visiting nurse or other home services: No Alcohol intake: current Alcohol intake frequency: a few times a month Alcohol type: wine Patient Tobacco Use Status: Never used Tobacco Use of substances other than those prescribed or required for medical reasons: No Have you been hit, kicked, punched, or otherwise hurt by someone within the past year? If so, by whom?: No Are you DNR?: No Advance Directives: No Advance Directives Information Provided: Yes Advance Directives on File: No Recently lost weight without trying: No Patient : No FDLMP: unknown : No Poor oral hygiene: No Meds Allergies Allergy/AdvReac Type Severity Reaction Status Date / Time No Known Allergies Allergy Verified 04/08/21 10:54 [No Known Allergies*] Home Medications Medication Instructions Recorded Confirmed Last Taken Type albuterol sulfate 90 mcg/actuation 2 puff INHALATION Q6H PRN 10/01/20 04/12/21 Unknown History aerosol inhaler clonazepam 0.5 mg tablet 0.25 mg PO BEDTIME 10/01/20 04/12/21 Unknown History oxcarbazepine 600 mg 600 mg PO DAILY 10/01/20 04/12/21 Unknown History tablet,extended release 24 hr albuterol sulfate 1 amp INHALATION Q6H PRN 04/12/21 04/12/21 Unknown History fluticasone propionate 110 2 puff PO BID 04/12/21 04/12/21 Unknown History mcg/actuation HFA aerosol inhaler (Flovent HFA) sertraline 100 mg tablet 2 tab PO BID 04/12/21 04/12/21 Unknown History Exam Exam Date and Time: April 18, 2021 0954 Height,Weight and Vital Signs: Height 5 ft 7 in Weight 114.305 kg Pertinent Lab Results Pertinent Lab Results: Laboratory Tests 04/12/21 04/12/21 04/12/21 14:56 14:56 14:56 WBC 4.6 L RBC 4.85 Hgb 13.5 Hct 40.3 MCV 83.1 MCH 27.8 MCHC 33.5 RDW 13.0 Plt Count 235 MPV 11.6 Immature Gran % (Auto) 0.0 Neut % (Auto) 44.0 L Lymph % (Auto) 46.0 H Buchanan % (Auto) 5.7 Eos % (Auto) 3.9 Baso % (Auto) 0.4 Lymph # (Auto) 2.1 Buchanan # (Auto) 0.3 Eos # (Auto) 0.2 Baso # (Auto) 0.0 Abs Immat Gran (auto) 0.00 Absolute Neuts (auto) 2.0 Absolute Nucleated RBC 0.000 Nucleated RBC % (auto) 0.0 PT 11.5 INR 1.0 APTT 35.6 Sodium 142 Potassium 4.1 Chloride 108 Carbon Dioxide 28 Anion Gap 10 L BUN 16 Creatinine 0.90 Estim Creat Clear Calc 110.6 Estimated GFR > 60 Random Glucose 103 Estimat Average Glucose Hemoglobin A1c % Insulin Level 27 Calcium 9.3 Total Bilirubin 2.0 H AST 16 ALT 18 Alkaline Phosphatase 61 C-Reactive Protein 0.29 Total Protein 6.7 Albumin 4.0 Triglycerides 110 Cholesterol 223 LDL Cholesterol, Calc 141 HDL Cholesterol 60 TSH 0.92 Blood Type Antibody Screen Antibody Identification Crossmatch (AHG) 04/12/21 04/13/21 14:56 15:15 WBC RBC Hgb Hct MCV MCH MCHC RDW Plt Count MPV Immature Gran % (Auto) Neut % (Auto) Lymph % (Auto) Buchanan % (Auto) Eos % (Auto) Baso % (Auto) Lymph # (Auto) Buchanan # (Auto) Eos # (Auto) Baso # (Auto) Abs Immat Gran (auto) Absolute Neuts (auto) Absolute Nucleated RBC Nucleated RBC % (auto) PT INR APTT Sodium Potassium Chloride Carbon Dioxide Anion Gap BUN Creatinine Estim Creat Clear Calc Estimated GFR Random Glucose Estimat Average Glucose 105 Hemoglobin A1c % 5.3 Insulin Level Calcium Total Bilirubin AST ALT Alkaline Phosphatase C-Reactive Protein Total Protein Albumin Triglycerides Cholesterol LDL Cholesterol, Calc HDL Cholesterol TSH Blood Type A Positive Antibody Screen POSITIVE Antibody Identification Anti-K Crossmatch (AHG) See Detail Narrative Narrative: EKG 09/2020 Vent. Rate : 076 BPM ? ? Atrial Rate : 076 BPM ?? P-R Int : 118 ms? QRS Dur : 078 ms ? ? QT Int : 390 ms ? ? ? P-R-T Axes : 067 071 045 degrees ?? QTc Int : 438 ms ? Sinus rhythm with marked sinus arrhythmia Otherwise normal ECG No previous ECGs available Assessment and Plan Assessment Anesthesia Assessment: Chart Reviewed Documented by User: Sowmya De Leon MD 04/19/21 07:20 [facility] Past Medical History Medical History (Updated 04/12/21 @ 08:31 by Ira Doty, [place]) Anxiety Asthma Back pain Depression History of blood transfusion Insomnia Low back pain Morbid obesity Family History Family History (Updated 10/01/20 @ 07:29 by SESAR Rodriguez) Mother Hypertension Diabetes Father No problems noted. Sister No problems noted. Son No problems noted. Daughter No problems noted. Surgical History Surgical History Hx of section Social History Social History (Updated 04/12/21 @ 08:27 by Ira Doty, RN) Are you a primary healthcare specialist to a significant other at home: Yes (children 9+11) Do you presently have visiting nurse or other home services: No Alcohol intake: current Alcohol intake frequency: a few times a month Alcohol type: wine Patient Tobacco Use Status: Never used Tobacco Use of substances other than those prescribed or required for medical reasons: No Have you been hit, kicked, punched, or otherwise hurt by someone within the past year? If so, by whom?: No Are you DNR?: No Advance Directives: No Advance Directives Information Provided: Yes Advance Directives on File: No Recently lost weight without trying: No Patient : No FDLMP: unknown : No Poor oral hygiene: No Meds Allergies Allergy/AdvReac Type Severity Reaction Status Date / Time No Known Allergies Allergy Verified 04/08/21 10:54 [No Known Allergies*] Home Medications Medication Instructions Recorded Confirmed Last Taken Type albuterol sulfate 90 mcg/actuation 2 puff INHALATION Q6H PRN 10/01/20 04/12/21 Unknown History aerosol inhaler clonazepam 0.5 mg tablet 0.25 mg PO BEDTIME 10/01/20 04/12/21 Unknown History oxcarbazepine 600 mg 600 mg PO DAILY 10/01/20 04/12/21 Unknown History tablet,extended release 24 hr albuterol sulfate 1 amp INHALATION Q6H PRN 04/12/21 04/12/21 Unknown History fluticasone propionate 110 2 puff PO BID 04/12/21 04/12/21 Unknown History mcg/actuation HFA aerosol inhaler (Flovent HFA) sertraline 100 mg tablet 2 tab PO BID 04/12/21 04/12/21 Unknown History Exam Airway Mallampati Class: II TM Dist: >3cm Neck ROM: Full
[2021-04-19] VITALS (18 sets, daily range): BP systolic 107–155; BP diastolic 59–93; PULSE 76–94; RESP 12–18; TEMP 36.3–36.8; O2SAT 96–100
[2021-04-19 06:34] LABS: UPreg QC Valid YES; Urine Pregnancy NEGATIVE (NEGATIVE)
[2021-04-19 06:43] LABS: COVID-19 Test Negative (Negative)
[2021-04-19] MEDS: Lactated Ringers 1,000 ML 100 ML IVCONT ×4 (06:43→20:37)
--- NOTE | 2021-04-19 10:25 | PM.OP ---
Brief Operative Note Date of Service: 04/19/21 Pre-op diagnosis: Morbid obesity and comorbidities (see below) Post-op diagnosis: same (& congenital abdominal adhesions) Procedure: INITIAL PATIENT BMI ON PRESENTATION AT OUR OFFICE: 43.7 kg/m2 LAST BMI BEFORE SURGERY: 39.6 kg/m2 COMORBIDITIES: asthma, anxiety, insomnia, back pain, cholelithiasis The patient participated in an intensive weekly lifestyle ?intervention and exercise program during which the patient ?has lost between the initial office visit and the last preoperative visit 25.8lbs, or 9.27% of initial actual body weight. The patient met the BMI-criteria for bariatric surgery based on the BMI on initial presentation. The patient should not be penalized for achieving such weight loss because ?it is not sustainable long-term without surgical intervention and it was achieved in preparation for bariatric surgery ?under my direction and based on my published research ([email or web address]) ?that a 10% preoperative weight loss improves long-term weight loss after surgery and reduces perioperative complications.? Insurance carriers such as [facility] have endorsed my recommendations ?and have included in their policies criteria to include a 10% preoperative weight loss requirement. PROCEDURE: Esophago-gastroscopy, laparoscopic lysis of adhesions, laparoscopic sleeve gastrectomy and laparoscopic gastropexy INDICATIONS: This is a 40 year-old female who was electively scheduled for laparoscopic, possibly open sleeve gastrectomy. The risks and complications of the procedure were discussed with the patient in advance, particularly the possibility of ; pulmonary embolism; staple line leak; bleeding; GERD; cardiac, pulmonary, or renal complications; as well as long-term problems such as insufficient weight loss, vitamin deficiency, strictures, or ulcers. The patient understood all the risks, and was in agreement to proceed with surgery. DESCRIPTION OF PROCEDURE: After informed consent was obtained from the patient, the patient was given preoperative antibiotics, and was transferred to the operating room. After successful induction of general anesthesia, pneumatic compressive devices were placed on both lower extremities. An upper endoscopy was performed next. The oropharynx and esophagus appeared to be within normal limits. There was no diaphragmatic hernia present consistent with the findings of the preoperative upper GI. The stomach was entered. Then after all fluid and air were suctioned and the stomach was fully decompressed, the scope was withdrawn and secured in the mid esophagus. The patient was then prepped and draped in the usual sterile manner, and abdominal access was established at the right upper quadrant with the Kade technique. A 12 mm blunt port was inserted, and the abdomen was insufflated with CO2 to a pressure of 15 mmHg. Under direct visualization, additional ports were placed, specifically two 5 mm Versi-step ports to the left upper quadrant, and a 5 mm Versi-Step port to the right upper quadrant. 1% lidocaine plain was used to infiltrate all port sites as well as all fascia defects. Using the EndoClose suture passer device, we placed a #1 Polysorb tie across the falciform ligament in order to retract it up against the abdominal wall and prevent injury of the ligament with our instruments during the procedure. Following that, the patient was placed in a steep reverse Trendelenburg position. An additional 5 mm port was placed to the right flank for the Mediflex retractor that was used to retract the left lobe of the liver. The gastro-esophageal fat pad was opened with the ultrasonic device (Thunderbeat, Olympus) and the anterior esophagus and hiatus were exposed. The angle of His was opened with the ultrasonic device the fundus of the stomach from any diaphragmatic and splenic attachments. I then opened the gastrocolic ligament between the transverse colon and the greater curvature of the stomach with the ultrasonic device to enter the lesser sac and facilitate the ligation of the short gastric vessels. I started at a mid-point along the greater curvature and using the Thunderbeat, all short gastric vessels were divided all the way to the angle of His until the left gal was completely dissected at its entirety. I then divided the gastro-colic ligament distally to a distance of about 3-4 cm proximal to the esophagus. There were extensive congenital adhesions between the pancreas and posterior gastric wall. Those were lysed completely with the ultrasonic device. Adhesiolysis took approximately 45 min to complete.? The stomach was then divided transversely with one Endo ANNIE-45 purple, one ANNIE-60 purple, one ANNIE-45 orange and three ANNIE-60 articulating orange loads using the AEON stapler and loads. Every effort was made that the gastric sleeve had a tubular shape and an even caliber throughout. Once the sleeve resection was completed, the staple line of the gastric sleeve was reinforced with Hemoclips. The resected stomach was retrieved without difficulty from the Kade port. A gastropexy was then performed in order to prevent postoperative GERD and partial gastric volvulus. Several interrupted 2.0 Surgidac sutures were placed between the sleeve's staple line and the previously divided greater omentum and gastro-colic ligament using the Endo-Stitch device. ?An upper endoscopy was performed. There was no narrowing at the GE junction. The scope was easily advanced all the way to the pylorus which was clearly visualized. There was no narrowing anywhere and the sleeve's caliber was even throughout. The sleeve's staple line was inspected and there was no evidence of ischemia, bleeding or dehiscence. At that point the gastroscope was withdrawn from the patient?s mouth while we were decompressing the bowel and the stomach from any remaining air. I looked into the lesser sac to see how the sleeve was situating and it was situating well. There was no bleeding from the staple line, spleen, or short gastric vessels. The Mediflex retractor was removed, and the undersurface of the liver was inspected and there was no bleeding. The patient was placed in supine position. I closed the fascial defect of the 12 mm port site with a figure of eight #1 Polysorb suture. Then 100 cc 0.25 % Marcaine plain with 10 mg of Dexamethasone were used to infiltrate the fascial closure as well as all skin incisions. At this point, the abdomen was deflated, all ports were removed under direct vision, and no bleeding was noted from any of the port sites. The skin incisions were irrigated with saline and were closed with 4-0 absorbable monofilament sutures. Steri-Strips and OpSites were used to cover all incisions. The patient was extubated and was transferred in stable condition to the recovery room for further care. I was present and performed all farias parts of the procedure. Ms. Cotton was the metal forger's assistant. There were no residents to assist with this case. Lamin Villafuerte MD, PhD, FACS Surgeon: Samir Villafuerte MD Anesthesia: GETA, local and other (TAP block) Was an Waiter/Waitress Informal used for this Procedure?: Yes Waiter/Waitress Informal: Tanya Cotton Estimated blood loss (mL): 10 IV fluids (mL): 2,500 Urine output (mL): 0 (No Bryson to record) Pathology: other (Stomach) Condition: stable Disposition: PACU
--- NOTE | 2021-04-19 10:29 | PM.PNGS ---
Subjective Subjective Date of Service: 04/20/21 Interval history: Patient has mild incisional pain, but was able to ambulate and use the incentive spirometer. She is tolerating phase 1 bariatric diet Physical Exam Vital Signs: Vital Signs: Last Vital Signs Temp 97.3 F 04/19/21 06:16 Pulse 81 04/19/21 06:16 Resp 18 04/19/21 06:16 BP 107/75 04/19/21 06:16 Body Mass Index 39.4 GI: Inspection: Yes normal to inspection and Yes incision (clean, dry and intact) Extrem: Right lower extremity: normal to inspection (no calf tenderness) Left lower extremity: normal to inspection (no calf tenderness) Objective Data Active Medications Albuterol Sulfate (Albuterol Sulfate (0.083%) 2.5 Mg/3 Ml Vial.Neb) 2.5 mg INHALE ONCE PRN PRN Reason: Shortness of Breath/Wheezing Albuterol Sulfate (Albuterol Sulfate (0.083%) 2.5 Mg/3 Ml Vial.Neb) 2.5 mg INHALE ONCE PRN PRN Reason: Wheezing Fentanyl (Fentanyl Citrate/Pf 100 Mcg/2 Ml Vial) 50 mcg IVPUSH Q5M PRN; Protocol PRN Reason: Pain, Severe (Pain Scale 7-10) Lactated Ringer's (Lr) 1,000 mls @ 100 mls/hr IVCONT .Q10H SERGIO Last Admin: 04/19/21 06:43 Dose: 100 mls/hr Documented by: JUSTIN Ondansetron HCl (Ondansetron Hcl 4 Mg/2 Ml Vial) 4 mg IVPUSH ONCE PRN PRN Reason: Nausea and Vomiting Labs CBC & Chem 7: 04/20/21 05:34 04/20/21 05:34 Labs: Laboratory Results - last 24 hr 04/19/21 04/19/21 06:10 06:10 Urine Test NEGATIVE COVID-19 (TIAN) Negative COVID-19 Clin Com See Note Procedures Date of Service Date of Service: 04/20/21 Progress Note: A&P Assessment and plan (1) Obesity: Status: Acute (2) BMI 39.0-39.9,adult: Status: Acute (3) Insomnia: Status: Acute (4) Back pain: Status: Acute (5) Anxiety: Status: Acute (6) Congenital intra-abdominal adhesions: Status: Acute (7) Cholelithiasis: Status: Acute (8) Steatosis, liver: Status: Acute (9) Status post sleeve gastrectomy: Status: Acute Assessment and Plan: s/p laparoscopic sleeve gastrectomy, lysis of adhesions and gastropexy Doing well Check am labs. If OK, will discharge home? Fall Risk Details Current Medications: Current Medications Albuterol Sulfate (Albuterol Sulfate (0.083%) 2.5 Mg/3 Ml Vial.Neb) 2.5 mg INHALE ONCE PRN PRN Reason: Shortness of Breath/Wheezing Albuterol Sulfate (Albuterol Sulfate (0.083%) 2.5 Mg/3 Ml Vial.Neb) 2.5 mg INHALE ONCE PRN PRN Reason: Wheezing Fentanyl (Fentanyl Citrate/Pf 100 Mcg/2 Ml Vial) 50 mcg IVPUSH Q5M PRN; Protocol PRN Reason: Pain, Severe (Pain Scale 7-10) Lactated Ringer's (Lr) 1,000 mls @ 100 mls/hr IVCONT .Q10H SERGIO Last Admin: 04/19/21 06:43 Dose: 100 mls/hr Documented by: Ondansetron HCl (Ondansetron Hcl 4 Mg/2 Ml Vial) 4 mg IVPUSH ONCE PRN PRN Reason: Nausea and Vomiting Time Spent With Patient Time: Total time spent is greater than 50% in coordination of care (as documented) at patient's floor/unit and/or counseling patient: Time with patient: less than 15 minutes Quality Stroke Does the patient have a stroke diagnosis?: No VTE Prior VTE?: No VTE Risk Level:: Surgical - moderate VTE Device Contraindication: N/A - Device Ordered VTE Drug Contraindication: Treatment Not Indicated
--- NOTE | 2021-04-19 10:37 | P.DS_ITS ---
DS: Providers Provider Date of Service: 04/20/21 Date of admission: 04/19/21 06:02 Primary care physician: Chastity Garibay MD DS: Diagnosis Discharge Diagnosis (1) Obesity: Status: Acute (2) BMI 39.0-39.9,adult: Status: Acute (3) Insomnia: Status: Acute (4) Back pain: Status: Acute (5) Anxiety: Status: Acute (6) Congenital intra-abdominal adhesions: Status: Acute (7) Cholelithiasis: Status: Acute (8) Steatosis, liver: Status: Acute (9) Status post sleeve gastrectomy: Status: Acute DS: Summary Hospital Course Hospital Course: ADMITTING DIAGNOSIS: morbid obesity, asthma, anxiety, back pain, insomnia ? DISCHARGE DIAGNOSIS: same, s/p laparoscopic sleeve gastrectomy ? PAST SURGICAL HISTORY: cesarian section x 2 ? PROCEDURE: upper endoscopy, laparoscopic sleeve gastrectomy ? DISCHARGE SUMMARY: ? History of Present Illness: ? The patient is a?40 year-old woman with a BMI of?43.5 kg/m2 and associated co-morbidities as described above. The patient had extensive work-up,lost?25.8 lbs preoperatively and was electively scheduled for laparoscopic, possible open sleeve gastrectomy and gastropexy. Risks and complications of the surgery were discussed with the patient in advance, particularly the possibility of , pulmonary embolism, anastomotic leak, bleeding, bowel injury, GERD, cardiac, renal or pulmonary complications. The patient understood all the risks and was in agreement with the surgical plan. ? Hospital Course: ? The patient underwent an uneventful laparoscopic sleeve gastrectomy with gastropexy on the day of admission. Postoperatively, the patient was transferred to the surgical floor. The patient received IV Acetaminophen and IV dilaudid for pain control. Patient was started on bariatric phase 1 diet POD #0. On postoperative day one, the patient was feeling well without nausea, vomiting, fevers, or tachycardia. The patient had some mild incisional pain and the abdomen was soft. ? On the morning of postoperative day one, the patient was continued on 1 ounce of water or ice every half hour. During the day, the patient did fairly well, having some incisional pain, but able to ambulate adequately and to tolerate liquids well. ? Since the patient is doing well, we decided that the patient was ready to be discharged. The patient was given instructions to follow-up with me next week and to call my office for any fever over 101, persistent abdominal pain, nausea, vomiting, GERD, symptoms of DVT such as calf tenderness, or leg swelling, or pulmonary embolism such as chest pain or shortness of breath. The patient was also instructed to drink 40-60 ounces of liquids per day using the 1-ounce cups. The patient had been given prescriptions for Tylenol for pain, Zofran prn for nausea, and pantoprazole and carafate previously. The patient was encouraged to ambulate and use the incentive spirometer. The patient was allowed to shower, but no baths, and encouraged to stay active at home. All of these instructions were given to the patient personally. All questions were answered and the patient understood all instructions, the instructions were also given to the patient in print. Status at Discharge Functional status at discharge: independent ambulation Time Spent with Patient Time attestation: Total time spent providing and/or coordinating discharge services: Discharge coordination time: Less than 30 minutes Quality: Stroke Does the patient have a stroke diagnosis?: No Physical Exam Vital Signs: Vital Signs: Last Vital Signs Temp 97.3 F 04/19/21 06:16 Pulse 81 04/19/21 06:16 Resp 18 04/19/21 06:16 BP 107/75 04/19/21 06:16 Body Mass Index 39.4 DS: Data Data Completed and Pending Pending studies at discharge: Pending at discharge 04/19/21 09:51 Surgical [PTH] Routine Labs on day of discharge: Laboratory Results - last 24 hr 04/19/21 04/19/21 06:10 06:10 Urine Test NEGATIVE COVID-19 (TIAN) Negative COVID-19 Clin Com See Note Discharge Plan Discharge Patient Disposition: Home, Self-Care Discharge Diagnosis: s/p sleeve gastrectomy Referrals: Chastity Garibay MD [Primary Care Provider] - 1 Week Discharge Medications: Continued albuterol sulfate 2.5 mg /3 mL (0.083 %) solution for nebulization 1 amp inhalation Q6H PRN (Reason: Shortness Of Breath Or Wheezing) RF: 0 sertraline 100 mg tablet 2 tab PO BID RF: 0 Flovent HFA 110 mcg/actuation HFA aerosol inhaler 2 puff PO BID RF: 0 albuterol sulfate 90 mcg/actuation HFA aerosol inhaler 2 puff inhalation Q6H PRN (Reason: Shortness Of Breath Or Wheezing) RF: 0 clonazepam 0.5 mg tablet 0.25 mg PO BEDTIME RF: 0 pantoprazole 40 mg tablet,delayed release (DR/EC) 40 mg PO DAILY Qty: 30 RF: 2 sucralfate 100 mg/mL suspension 10 ml PO BID Qty: 400 RF: 2 ondansetron HCl [Zofran] 4 mg tablet 4 mg PO Q12H Qty: 20 RF: 0 Discontinued cholecalciferol (vitamin D3) 125 mcg (5,000 unit) capsule 125 mcg PO DAILY Qty: 30 RF: 2 mecobalamin (vitamin B12) 1,000 mcg tablet,disintegrating 1,000 mcg sublingual DAILY Qty: 30 RF: 2 oxcarbazepine [Trileptal] 150 mg tablet 1 tab PO DAILY RF: 0 oxcarbazepine [Trileptal] 600 mg tablet 1 tab PO BEDTIME RF: 0 polyethylene glycol 3350 [Miralax] 17 gram powder in packet 17 g PO DAILY Qty: 14 RF: 0 Discharge Orders: Discharge Order (Routine); Ordered 04/20/21 Ordered By: Samir Villafuerte Diet: other Activity on Discharge: No heavy lifting Stand Alone Forms: Patient Portal Discharge page Care Plan Goals: weight loss Health Concerns: obesity Plan of Treatment: No tub baths, sex or returning to work until discussed at first post op appointment. No exercise, alcohol, tobacco or illegal drug use. Continue to use incentive spirometer hourly while awake. Walk in home for 5- 10 minutes every 2 hours during the first week. Follow all instructions in the bariatric handbook and call with any questions.Discharge Instructions 1. Please call your doctor or come back to the emergency room should any new symptoms arise. 2. You will receive a courtesy call from [facility] 24-48 hours after discharge. 3. Activity: abstain from alcohol, practice limited stair climbing, no bending, no driving, no exercise, no illicit substances, no lifting, no sex, no tub bath, no work. 4. Diet: continue as discussed with Dr. Villafuerte. 5. Dressing Change/Wound Care: Your incision is covered by clear bandages and gu aze underneath. If the area is tender, you may apply an ice pack for short intervals (no more than 20 minutes on, followed by at least 20 minutes off). Do not apply heat. Do not use creams, lotions, or topical antibiotics unless instructed to do so by your surgeon. These can cause infection or allergic reaction. 6. Call your doctor if: - Your temperature exceeds 101.5 F - You experience excessive pain or swelling - You have an unexpected reaction to medication - You have excessive bleeding - You experience continued vomiting/nausea - Your incision begins to separate - Your incision shows signs of infection such as increased redness, swelling, excessive pain, heat, or drainage (light blood or clear fluid is normal) 7. General instructions: No lifting greater than 5 lbs for the next 4 weeks[address] within 24 hours of taking narcotic pain medications. If you do not move your bowels in the next 2 days, please take milk of magnesia over the counter. Please follow the post op diet and do not advance your diet until you are seen in the office in about 2 weeks. Please walk around your home every hour or two to prevent blood clots from forming in your legs. You do not need to wake from sleeping to walk. Please sleep in a bed or couch to prevent kinking at the hips and knees. Please take your incentive spirometer (your lung beer coil cleaner) home with you and use it for the next few days to prevent pneumonias. You may shower, no hot tubs, baths or swimming pools. Please call the office with any questions or concerns such as increasing abdominal pain, fever, chills, shortness of breath, chest pain, leg pain or swelling, or redness or drainage from your incisions. Please stay on stage 3 diet which includes sugar free clear liquids such as ice pops and jello and broth and crystal light. Avoid all carbonation. Please drink 3 protein shakes with at least 25-30 grams of protein daily or 3 of the Celebrate 4:1 shakes which can be purchased in our office. The Celebrate shakes have all of the bariatric vitamins you need if you consume these shakes. If you are drinking other protein shakes, you will need to purchase the Celebrate multivitamins and calcium that we provide in the office (they will provide all the vitamins you need). Please make sure you are consuming at least 40-60 ounces of water in addition to your 3 protein shakes daily. Do not hesitate to contact the office with any questions at . The patient's medical history has been reviewed and they are considered low risk for post op DVT and therefore DVT prophylaxis is not considered necessary. Travel after surgery was reviewed. The patient has not disclosed any travel plans during the first 30 days after surgery and they have been advised that within the first 30 days after surgery any bus, plane, train or car travel over 2 hours in duration is contraindicated due to the possibility of developing blood clots from immobility. Any travel, needs to include periods of ambulation of 10 minutes in duration every 2 hours.? The patient was instructed to discuss any plans for travel during this period with their bariatric surgeon. Assessment: stable, s/p laparoscopic sleeve gastrectomy
[2021-04-19] MEDS: Metoclopramide HCl 10 MG/2 ML VIAL IVPUSH ×2 (11:06→19:08)
[2021-04-19 11:22] LABS: Hematocrit 40.6 % (37.0-47.0); Hemoglobin 13.6 g/dl (12.0-16.0)
[2021-04-19] MEDS: Famotidine/PF 20 MG/2 ML VIAL IVPUSH ×2 (11:31→20:36)
[2021-04-19 11:36] LABS: Anion Gap 14 (12-20); Blood Urea Nitrogen 15 mg/dL (9-16); Calcium 8.5 mg/dL (8.4-10.2); Carbon Dioxide 22 mmol/L (22-29); Chloride 112 mmol/L (96-108); Creatinine Clr Calc Pharmacy 99.5; Estimated Glomerular Filt Rate > 60; Glucose Random 166 mg/dL (60-115); Potassium 3.9 mmol/L (3.3-5.1); Sodium 144 mmol/L (135-145)
[2021-04-19] MEDS: ceFAZolin Sodium/Dextrose,Iso 2 GM/50 ML PIGGYBACK IV (13:53)
[2021-04-19] MEDS: ondansetron HCL 4 MG/2 ML VIAL IVPUSH ×2 (16:10→23:33)
[2021-04-19] MEDS: 0.9 % Sodium Chloride Flush 3 ML SYRINGE IVFLUSH (19:10)
[2021-04-19] MEDS: OXcarbazepine 300 MG TABLET 600 MG PO (20:35)
[2021-04-19] MEDS: Fluticasone Propionate 100 MCG BLST.W.DEV 2 PUFF INHALE (20:50)
[2021-04-20 04:00] VITALS: BP 113/70; PULSE 92; RESP 18; TEMP 36.6; O2SAT 96
[2021-04-20 05:46] LABS: MANUAL DIFF FLAG NO
[2021-04-20 05:53] LABS: Basophils Percent Auto 0.1 % (0-2); Hematocrit 36.9 % (37.0-47.0); Hemoglobin 12.3 g/dl (12.0-16.0); Imm Gran Abs Auto 0.02 X10*3/uL (0.00-0.03); Imm Gran Pct Auto 0.3 % (0.0-0.4); Lymphocytes Percent Auto 14.1 % (20-40); Mean Corpuscular HGB Conc 33.3 g/dl (31.0-35.0); Mean Corpuscular Hemoglobin 27.9 pg (27.0-33.0); Mean Corpuscular Volume 83.7 fL (80.0-98.0); Mean Platelet Volume 11.7 fL (9.4-12.3); Monocytes Absolute Auto 0.6 X10*3/uL (0.1-1.2); Monocytes Percent Auto 9.1 % (2-11); Neutrophils Absolute Auto 5.1 x10*3/uL (2.0-8.3); Neutrophils Percent Auto 76.4 % (45-73); Platelet Count 199 X10*3/uL (160-400); Red Blood Count 4.41 X10*6/uL (4.20-5.50); Red Cell Distribution Width 13.3 % (11.0-16.0); White Blood Count 6.7 X10*3/uL (4.8-10.8)
[2021-04-20 06:05] LABS: Anion Gap 12 (12-20); Blood Urea Nitrogen 11 mg/dL (9-16); Calcium 8.7 mg/dL (8.4-10.2); Carbon Dioxide 24 mmol/L (22-29); Chloride 113 mmol/L (96-108); Creatinine Clr Calc Pharmacy 121.4; Estimated Glomerular Filt Rate > 60; Glucose Random 113 mg/dL (60-115); Sodium 145 mmol/L (135-145)
[2021-04-20] MEDS: Lactated Ringers 1,000 ML 100 ML IVCONT (06:23)
[2021-04-20 07:33] VITALS: BP 118/72; PULSE 79; RESP 20; TEMP 37.1; O2SAT 98
[2021-04-20] MEDS: Fluticasone Propionate 100 MCG BLST.W.DEV 2 PUFF INHALE (07:53)
[2021-04-20 07:54] VITALS: PULSE 89; O2SAT 95
[2021-04-20] MEDS: Famotidine/PF 20 MG/2 ML VIAL IVPUSH (09:30)
[2021-04-20] MEDS: OXcarbazepine 150 MG TABLET PO (09:31)
[2021-04-20] MEDS: ondansetron HCL 4 MG/2 ML VIAL IVPUSH (09:31)
--- NOTE | 2021-04-20 10:36 | HO.POSTANES ---
Post Anesthesia Evaluation Post Anesthesia Evaluation Vital Signs: Vital Signs Temp Pulse Resp BP Pulse Ox 04/20/21 07:33 98.8 F 79 20 118/72 98 04/20/21 04:00 97.8 F 92 18 113/70 96 04/19/21 23:30 97.7 F 82 18 111/59 L 96 Anesthesia: General Endotracheal-GETA Mental Status: Awake Pain Control: Satisfactory Nausea/Vomiting: None Hydration: Adequate Anesthesia-Related Issues: No Anes. Related Issues
--- NOTE | 2021-04-20 11:24 | MHC.CM.PN ---
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 met with patient she is active, independent in all adls and mobility , she has no dme services in the home. she is involved with mental health counseling and has a psychiatrist and thearpist. educated about the importance of having a health care proxy, educated about the medicare imm given to her . discharge plan home with no services selfr resumption of her mental health counseling pcp patient to call for post hospitla discharge follow up bariatric surgiocal follow up as indocated on the discharge tranaportation family all dischagre paper work completed and her questions answered.
[2021-04-20 15:12] VITALS: BP 120/38; PULSE 77; RESP 18; TEMP 36.7; O2SAT 98
== END 2021-04-20 15:30 | disposition home or self-care (01) | DRG 621 ==
LOC: HO.SSSA 10:37 → HO.S3 14:55
PROVIDERS: Nurse Practitioner; Physician Assistant; Admitting Provider Surgery; PCP General Practice; Visit Provider Surgery
PROC: 0DB64Z3 Excision of Stomach, Percutaneous Endoscopic Approach, Vertical (ICD-10-PCS; CPT 43845; principal; 2021-04-19 07:30)
DX: E66.01 Morbid (severe) obesity due to excess calories (principal); F32.A Depression, unspecified; K80.20 Calculus of gallbladder without cholecystitis without obstruction; M54.9 Dorsalgia, unspecified; K66.0 Peritoneal adhesions (postprocedural) (postinfection); K76.0 Fatty (change of) liver, not elsewhere classified; J45.909 Unspecified asthma, uncomplicated; F41.9 Anxiety disorder, unspecified; G47.00 Insomnia, unspecified; Z68.39 Body mass index [BMI] 39.0-39.9, adult; Z20.822 Contact with and (suspected) exposure to COVID-19; Z79.51 Long term (current) use of inhaled steroids; Z79.899 Other long term (current) drug therapy
CPT/HCPCS: 36415; 80048; 80053; 80061; 81025; 83036; 83525; 84443; 85014; 85018; 85025; 85610; 85730; 86140; 86850; 86870; 86900; 86901; 86902; 86905; 86920; 86922; 87635; 88307; 88342; 99024; A4649; J0131; J0690; J1100; J1170; J2250; J2405; J2550; J2765; J3010

== ENCOUNTER → 2021-04-27 09:28 | Outpatient (BNVA) | payer OTHER, SELFPAY | PROVIDERS: PCP General Practice; Referring Provider General Practice; Visit Provider Surgery | DX: E66.9 Obesity, unspecified (principal); Z68.37 Body mass index [BMI] 37.0-37.9, adult | CPT/HCPCS: 99212 ==

== ENCOUNTER → 2021-05-03 08:17 | Outpatient (BNVA) | payer OTHER, SELFPAY | PROVIDERS: PCP General Practice; Referring Provider General Practice; Visit Provider Physician Assistant ==

== ENCOUNTER → 2021-05-10 08:34 | Outpatient (BNVA) | payer OTHER, SELFPAY | PROVIDERS: PCP General Practice; Referring Provider General Practice; Visit Provider Physician Assistant Surgical ==

== ENCOUNTER → 2021-05-17 08:36 | Outpatient (BNVA) | payer OTHER, SELFPAY | PROVIDERS: PCP General Practice; Referring Provider General Practice; Visit Provider Physician Assistant Surgical ==

== ENCOUNTER → 2021-05-25 08:29 | Outpatient (BNVA) | payer OTHER, SELFPAY | PROVIDERS: PCP General Practice; Referring Provider General Practice; Visit Provider Physician Assistant Surgical ==

== ENCOUNTER → 2021-05-31 09:27 | Outpatient (BNVA) | payer OTHER, SELFPAY | PROVIDERS: PCP General Practice; Referring Provider General Practice; Visit Provider Physician Assistant Surgical ==

== ENCOUNTER → 2021-06-01 08:31 | Outpatient (BNVA) | payer OTHER, SELFPAY | PROVIDERS: PCP General Practice; Visit Provider Physician Assistant Surgical ==

== ENCOUNTER → 2021-06-07 08:36 | Outpatient (BNVA) | payer OTHER, SELFPAY | PROVIDERS: PCP General Practice; Referring Provider General Practice; Visit Provider Physician Assistant ==

== ENCOUNTER → 2021-06-09 08:37 | Outpatient (BNVA) | payer OTHER, SELFPAY | PROVIDERS: PCP General Practice; Referring Provider General Practice; Visit Provider Physician Assistant Surgical ==

== ENCOUNTER → 2021-06-10 08:20 | Outpatient (BNVA) | payer OTHER, SELFPAY | PROVIDERS: PCP General Practice; Visit Provider Physician Assistant Surgical | DX: E66.9 Obesity, unspecified (principal); K59.00 Constipation, unspecified | CPT/HCPCS: 99212 ==

== ENCOUNTER → 2021-06-17 08:45 | Outpatient (BNVA) | payer OTHER, SELFPAY | PROVIDERS: PCP General Practice; Referring Provider General Practice; Visit Provider Physician Assistant Surgical ==

== ENCOUNTER → 2021-07-15 14:19 | Outpatient (BNVA) | payer OTHER, SELFPAY | PROVIDERS: PCP General Practice; Visit Provider Physician Assistant Surgical | DX: E66.9 Obesity, unspecified (principal); Z68.35 Body mass index [BMI] 35.0-35.9, adult | CPT/HCPCS: Q3014 ==

== ENCOUNTER → 2021-08-26 13:55 | Outpatient (BNVA) | payer OTHER, SELFPAY | PROVIDERS: PCP General Practice; Referring Provider General Practice; Visit Provider Physician Assistant Surgical | DX: E66.9 Obesity, unspecified (principal); Z68.33 Body mass index [BMI] 33.0-33.9, adult; Z71.3 Dietary counseling and surveillance | CPT/HCPCS: 99212 ==

== ENCOUNTER → 2021-11-16 14:57 | Outpatient (BNVA) | payer OTHER, SELFPAY | PROVIDERS: PCP General Practice; Referring Provider Physician Assistant Surgical; Visit Provider Physician Assistant Surgical | DX: E66.9 Obesity, unspecified (principal); Z68.34 Body mass index [BMI] 34.0-34.9, adult; Z90.3 Acquired absence of stomach [part of] | CPT/HCPCS: 99212 ==

== ENCOUNTER → 2022-01-19 13:59 | Outpatient (BNVA) | payer OTHER, SELFPAY | PROVIDERS: PCP General Practice; Visit Provider Physician Assistant Surgical | DX: E66.9 Obesity, unspecified (principal); Z68.34 Body mass index [BMI] 34.0-34.9, adult; Z90.3 Acquired absence of stomach [part of] | CPT/HCPCS: 99212 ==

== ENCOUNTER → 2022-03-02 14:57 | Outpatient (BNVA) | payer OTHER, SELFPAY | PROVIDERS: PCP General Practice; Visit Provider Physician Assistant Surgical | DX: E66.9 Obesity, unspecified (principal); Z68.34 Body mass index [BMI] 34.0-34.9, adult; Z98.84 Bariatric surgery status | CPT/HCPCS: 99212 ==

== ENCOUNTER → 2022-03-14 14:36 | Outpatient (BNVA) | payer OTHER, SELFPAY | PROVIDERS: PCP General Practice; Visit Provider Dietitian, Registered | DX: E66.9 Obesity, unspecified (principal) | CPT/HCPCS: 97803 ==

== ENCOUNTER → 2022-05-15 14:27 | Outpatient (BNVA) | payer OTHER, SELFPAY | PROVIDERS: PCP General Practice; Visit Provider Physician Assistant Surgical | DX: E66.9 Obesity, unspecified (principal); Z68.34 Body mass index [BMI] 34.0-34.9, adult; Z90.3 Acquired absence of stomach [part of] | CPT/HCPCS: 99212 ==

== ENCOUNTER 2022-06-07 09:39 | Outpatient (REF) | payer OTHER, SELFPAY ==
--- NOTE | ~2022-06-07 | MM_ITS ---
EXAMINATION: MM DIAGNOSTIC DIGITAL BREAST TOMOSYNTHESIS, BILATERAL US RIGHT BREAST ULTRASOUND CLINICAL INFORMATION: Right breast lump which is firm and painful. Patient just started antibiotics 2 days ago. Rule out abscess. The lifetime risk of breast cancer based on the Tyrer-Cuzick Model is 12.9%. COMPARISON: Mammography: 11/08/2020 and studies dating back to 09/17/2018. TECHNIQUE: Digital breast tomosynthesis is performed in both the craniocaudal and mediolateral oblique views along with computer-aided detection (CAD). Synthesized 2D images are generated from the tomosynthesis. Targeted right breast ultrasound. FINDINGS: The breasts are heterogeneously dense, which may obscure small masses (ACR BI-RADS breast composition Category c). The left breast has a stable parenchymal pattern without new abnormal dominant mass or suspicious grouping of microcalcifications. There is increased density with skin thickening and question calcifications about the anterior aspect of the right breast. Patient had tenderness with compression. There is a question of some calcifications about the anterior aspect of the breast versus artifact. Ultrasound of the anterior aspect of the right breast demonstrates some edematous change within the tissue without underlying irregular marginated hyperemic collection. There appear to be some small regions of circumscribed density with increased through-sound transmission measuring up to 1 cm in size with smooth back driscoll and increased through-sound transmission which may represent complex cysts.. Recommend clinical correlation following antibiotic therapy. Results are discussed with the patient at time of visit. MM/MM tomosynthesis diagnostic BI IMPRESSION: Findings consistent with inflammatory process; however, underlying mass cannot be excluded. Recommend spot magnification views anterior aspects of the right breast at the inflammatory process has resolved to further evaluate the calcifications. ASSESSMENT: BI-RADS 3: Probably benign. RECOMMENDATION: Clinical management for inflammatory process. Short-term right breast follow-up with spot magnification views as described. This patient's information was entered into a reminder system with a target due date for their next mammogram.
== END 2022-06-07 09:40 | disposition home or self-care (01) ==
LOC: HO.MAMMO 09:39
PROVIDERS: Visit Provider Emergency Medicine
DX: N64.4 Mastodynia (principal); R92.2 Inconclusive mammogram
CPT/HCPCS: 76642; 77062; 77066

== ENCOUNTER → 2022-06-22 10:51 | Outpatient (BNVA) | payer OTHER, SELFPAY | PROVIDERS: PCP General Practice; Visit Provider Surgery | DX: N64.4 Mastodynia (principal) | CPT/HCPCS: 99202 ==

== ENCOUNTER → 2022-07-04 14:08 | Outpatient (BNVA) | payer OTHER, SELFPAY | PROVIDERS: PCP General Practice; Visit Provider Physician Assistant Surgical | DX: E66.9 Obesity, unspecified (principal); Z68.34 Body mass index [BMI] 34.0-34.9, adult; Z98.84 Bariatric surgery status; Z90.3 Acquired absence of stomach [part of] | CPT/HCPCS: 99212 ==

== ENCOUNTER → 2022-07-18 14:12 | Outpatient (BNVA) | payer OTHER, SELFPAY | PROVIDERS: PCP General Practice; Visit Provider Surgery | DX: N64.4 Mastodynia (principal) | CPT/HCPCS: 99212 ==

== ENCOUNTER 2022-08-28 08:26 | Outpatient (REF) | payer OTHER, SELFPAY ==
--- NOTE | ~2022-08-28 | MM_ITS ---
EXAMINATION: MM DIAGNOSTIC DIGITAL BREAST TOMOSYNTHESIS, RIGHT US DIAGNOSTIC ULTRASOUND BREAST, RIGHT CLINICAL INFORMATION: Follow-up infection/inflammatory changes anterior right breast. Patient improved following second course of antibiotics. No known family history breast cancer. The lifetime risk of breast cancer based on the Tyrer-Cuzick Model is 13%. COMPARISON: Mammography: 06/07/2022, 11/08/2020, 11/05/2019, 05/06/2019, 09/17/2018 (baseline diagnostic); Right breast ultrasound 06/07/2022, 09/17/2018 TECHNIQUE: Digital breast tomosynthesis is performed in both the craniocaudal and mediolateral oblique views along with computer-aided detection (CAD). Synthesized 2D images are generated from the tomosynthesis. Additional views are obtained: Right CC, right MLO, magnification right CC, magnification right ML. Ultrasound right breast is targeted to the retroareolar and periareolar region using grayscale imaging and color Doppler without and with harmonics. FINDINGS: There are scattered areas of fibroglandular density (ACR BI-RADS breast composition Category b). There are again inflammatory changes anterior right breast with increased attenuation, mild skin thickening, and mild coarsening of the stromal markings. The severity is improved when compared with prior imaging 06/07/2022. There is no interval mass or architectural abnormality. No abnormal calcifications. Additional magnification views anterior right breast are unremarkable. Ultrasound demonstrates some ectatic ducts and increased stromal color flow in area of tenderness anterior right breast. There is no interval cystic or solid mass. No intraductal vascularity. Small foci of circumscribed heterogeneous echogenicity noted on prior ultrasound are no longer appreciated. Results are discussed with the patient at time of visit. Patient confirms improved symptoms since prior imaging. She has follow-up appointment with surgeon this month. Suggest follow-up unilateral right mammography in 6 months. Results called to biomedical equipment tech (Jenn) for Dr. Jeffries on 08/28/2022. MM/MM tomosynthesis diagnostic RT IMPRESSION: Inflammatory changes anterior right breast improved when compared with prior imaging 06/07/2022. ASSESSMENT: BI-RADS 3: Probably Benign RECOMMENDATION: 1. Patient should be managed based on the clinical impression. Patient has follow-up appointment with surgeon this month. 2. Diagnostic right mammography in 6 months. This patient's information was entered into a reminder system with a target due date for their next mammogram.
== END 2022-08-28 08:27 | disposition home or self-care (01) ==
LOC: HO.MAMMO 08:26
PROVIDERS: PCP General Practice; Visit Provider Surgery
DX: N64.4 Mastodynia (principal)
CPT/HCPCS: 76642; 77061; 77065

== ENCOUNTER → 2022-09-05 10:02 | Outpatient (BNVA) | payer OTHER, SELFPAY | PROVIDERS: PCP General Practice; Referring Provider General Practice; Visit Provider Surgery | DX: N64.4 Mastodynia (principal) | CPT/HCPCS: 99212 ==

== ENCOUNTER → 2022-09-15 13:52 | Outpatient (BNVA) | payer OTHER, SELFPAY | PROVIDERS: PCP General Practice; Visit Provider Dietitian, Registered | DX: E66.9 Obesity, unspecified (principal) | CPT/HCPCS: 97803 ==

== ENCOUNTER → 2022-10-16 16:31 | Outpatient (BNVA) | payer OTHER, SELFPAY | PROVIDERS: PCP General Practice; Visit Provider Physician Assistant Surgical | DX: E66.9 Obesity, unspecified (principal); Z68.36 Body mass index [BMI] 36.0-36.9, adult; Z98.84 Bariatric surgery status; Z90.3 Acquired absence of stomach [part of] | CPT/HCPCS: 99212 ==

== ENCOUNTER → 2022-11-09 14:32 | Outpatient (BNVA) | payer OTHER, SELFPAY | PROVIDERS: Visit Provider Dietitian, Registered | DX: E66.9 Obesity, unspecified (principal) | CPT/HCPCS: 97803 ==

== ENCOUNTER 2023-03-12 14:58 | Outpatient (AMB) | payer OTHER, SELFPAY ==
--- NOTE | 2023-03-12 15:13 | A.OFFVIS_ITS ---
Intake VS Expanded 03/12/23 15:58 Height 5 ft 7 in Weight 230 lb BMI 36.0 Intake Visit Reasons: (OV) PO LSG 04/19/21 Allergies No Known Allergies [No Known Allergies*] Allergy (Verified 10/16/22 16:35) HPI Nutrition Presentation Details LSG ?04/19/21 Reason for consult elevated BMI Diet Assmnt Details Ensure Petra shakes - really likes these. tries to have 2 per day but gets very full. Reports she is still easily distracted by work and gets very busy. Forgets to eat or doesn't want to. Some days has nothing at all, then feels very hungry by dinner Dinners: cooked by her partner, pt reports over eating, followed by vomiting. She skips meals all day, then feels extremely hungry by dinner time She shares her biggest issue now is skipping still. Also doesn't drink enough water per her report. Dietary counseling reduction Diagnosis Nutrition problem #1 overweight/obesity As related to (etiology) #1 excess energy intake and physical inactivity As evidenced by (sign/symptom) #1 high BMI Monitoring/Goals Nutrition problem monitoring total energy intake, level of knowledge/skill, total PRO intake, total CHO intake, weight and oral fluids Outcome progress progressing Learning/Education Readiness to learn excellent Stages of change action Most Recent Diabetes Results: No Data to Display [facility] Medical History Anxiety Asthma Back pain Cholelithiasis Depression History of blood transfusion Insomnia Low back pain Morbid obesity Steatosis, liver Surgical History History of sleeve gastrectomy Hx of section Family History Mother Hypertension Diabetes Father No problems noted. Sister Ovarian cancer Son No problems noted. Daughter No problems noted. 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 Pt finds reiteration helpful. Today we agreed on the followign goals: 2 Ensure max shakes (7am / 3pm) 2 meals (12pm / dinner) Will follow up with me as needed. Attend March workshop Coding Level of Care Code Nutr Indiv Subseq ([id number]) Diagnoses Obesity (BMI 30-39.9) E66.9 Time Spent (min) 30
[2023-03-12 15:58] VITALS: BMI 36.0
== END 2023-03-12 15:50 | disposition home or self-care (01) ==
PROVIDERS: PCP General Practice; Visit Provider Dietitian, Registered
DX: E66.9 Obesity, unspecified (principal)

== ENCOUNTER → 2023-03-12 14:58 | Outpatient (BNVA) | payer OTHER, SELFPAY | PROVIDERS: PCP General Practice; Visit Provider Dietitian, Registered | DX: E66.9 Obesity, unspecified (principal); Z68.36 Body mass index [BMI] 36.0-36.9, adult | CPT/HCPCS: 97803 ==

== ENCOUNTER 2023-03-25 08:26 | Emergency (ER) | payer OTHER, SELFPAY ==
[2023-03-25 08:28] VITALS: BP 130/86; PULSE 93; RESP 18; TEMP 36.6; O2SAT 98; BMI 36.0
--- NOTE | 2023-03-25 08:45 | ED_ITS ---
HPI - Ear Problem General Chief complaint: Ear Problems Stated complaint: ear pain Time Seen by Provider: 03/25/23 08:45 Source: patient and RN notes reviewed Mode of arrival: ambulatory Limitations: no limitations History of Present Illness HPI Narrative: This is a 42-year-old female, with a past medical history of asthma, presenting to the emergency department with complaints of left ear pain x5 days. Patient denies any recent trauma or injury to her ear. She states that she woke up and has had ear pain. She states that her pain is constant and waxes and wanes in severity. She denies any fevers, chills, nasal congestion, sore throat, cough or shortness of breath. Denies history of similar symptoms. Denies any drainage from the ear. She does report that she swims at her job, denies any recent swimming however. No other complaints or concerns at this time. MD Complaint: ear pain Location: left ear Duration: constant Severity: moderate Relieving factors: nothing Exacerbating factors: nothing Discharge from ear: no Treatment prior to arrival: none Related Data Home Medications Medication Instructions Recorded Confirmed albuterol sulfate 90 mcg/actuation 2 puff inhalation Q6H PRN 10/01/20 10/16/22 aerosol inhaler Shortness Of Breath Or Wheezing clonazepam 0.5 mg tablet 0.25 mg PO BEDTIME 10/01/20 10/16/22 albuterol sulfate 2.5 mg/3 mL 1 amp inhalation Q6H PRN Shortness 04/12/21 10/16/22 (0.083 %) solution for nebulization Of Breath Or Wheezing fluticasone propionate 110 2 puff PO BID 04/12/21 10/16/22 mcg/actuation HFA aerosol inhaler (Flovent HFA) sertraline 100 mg tablet 2 tab PO BID 04/12/21 10/16/22 ibuprofen 600 mg tablet 600 mg PO TID 06/22/22 10/16/22 Previous Rx's Medication Instructions Recorded clotrimazole 1 % topical cream 1 appl topical BID #45 grams 10/16/22 acetaminophen 500 mg tablet 500 mg PO Q6H PRN pain #30 tabs 03/25/23 (Tylenol Extra Strength) amoxicillin 875 mg-potassium 1 tab PO BID 5 days #10 tabs 03/25/23 clavulanate 125 mg tablet ibuprofen 600 mg tablet 600 mg PO Q6H PRN pain #30 tabs 03/25/23 Allergies Allergy/AdvReac Type Severity Reaction Status Date / Time No Known Allergies Allergy Verified 03/25/23 08:28 [No Known Allergies*] Review of Systems Review of Systems: Yes all other systems are reviewed and are negative Constitutional: Constitutional: Reports as per [facility] Past Medical History Attestation statement: The following information was validated with the patient. Medical History Steatosis, liver Cholelithiasis Low back pain History of blood transfusion Depression Asthma Insomnia Back pain Anxiety Morbid obesity Surgical History History of sleeve gastrectomy Hx of section Family History Family History Mother Hypertension Diabetes Father No problems noted. Sister Ovarian cancer Son No problems noted. Daughter No problems noted. Social History Social History Are you a primary regular senior care provider to a significant other at home: Yes (children 9+11) Do you presently have visiting nurse or other home services: No Alcohol intake: current Alcohol intake frequency: a few times a month Alcohol type: wine Patient Tobacco Use Status: Never used Tobacco service: No Current occupational status: employed Physical Exam Vital Signs: Vital Signs: Last Vital Signs Temp 98 F 03/25/23 08:28 Pulse 93 03/25/23 08:28 Resp 18 03/25/23 08:28 BP 130/86 03/25/23 08:28 Pulse Ox 98 03/25/23 08:28 O2 Del Method Room Air 03/25/23 08:28 BMI result Body Mass Index 36.0 Const: General: cooperative, comfortable and no acute distress Orientation/consciousness: patient oriented x3 Limitations: no limitations HEENT: Other: Left TM with erythema noted to the 6 to 11 o'clock position. TM is intact. Canal is non edematous non erythematous. Right TM unremarkable Head: Yes normal to inspection, Yes normocephalic and Yes atraumatic Ears: hearing grossly normal bilaterally General nose exam: Normal external nose present Face and sinus: Yes normal facial exam Mouth: Normal oral and palatal mucosa present, oropharynx normal and moist mucous membranes Throat: Yes posterior oropharynx normal Eyes: General: appearance normal, both eyes and all related structures Eyelids: Yes eyelids normal Conjunctivae: conjunctivae normal Sclerae: sclerae normal Pupils: Equal, round and reactive pupils present EOM: EOMs intact bilaterally Neck: Neck: Yes normal visual inspection, Yes full ROM and Yes no lymphadenopathy Lymphatic: no lymphadenopathy noted Chest: Chest palpation & inspection: normal inspection of the chest Resp: Effort & Inspection: normal respiratory effort and able to speak in complete sentences Auscultation: clear to auscultation bilaterally, no aircraft structural design engineer ckles, no rales, no rhonchi and no wheezes Cardio: Rate: regular rate Rhythm: regular rhythm Heart sounds: S1 normal heart sound present and S2 normal heart sound present GI: Inspection: Yes normal to inspection Skin: General skin exam: no rashes or lesions noted Trauma: no lacerations or abrasions Wounds: no wounds Neuro: General: patient oriented x3 and moves all extremities Cranial nerves: Yes Equal, round and reactive pupils present Extrem: General: Yes normal to inspection Right upper extremity: normal to inspection Left upper extremity: normal to inspection Right lower extremity: normal to inspection Left lower extremity: normal to inspection Medical Decision Making Medical Decision Making MDM Narrative: 42-year-old female presenting to the emergency department for evaluation of left ear pain x5 days. On arrival, vital signs within normal limits. Differential diagnoses include otitis media, otitis externa, TM perforation, otalgia. Left TM mildly erythematous, consistent with otitis media. Discussed findings with patient. Patient medicated with Tylenol in the department. Discharged with antibiotic advised to follow-up with primary care physician. Given return precautions. Patient understands and agrees with plan. Patient stable for discharge. Differential Diagnosis Differential Diagnoses: The differential diagnosis associated with the presentation includes See above Discharge Plan Discharge Clinical Impression: Otitis media Patient Disposition: Home, Self-Care Instructions: Ear Infection (ED) Additional Instructions: You presented to the emergency department for left ear pain. Your exam is concerning for an ear infection. Please take full course of antibiotic as prescribed. Finish the an entire course even if your feeling better. Take Tylenol and ibuprofen as needed for pain. Follow-up with your primary care physician. If any new or worsening symptoms occur, please return for re-evaluation. Prescriptions: New amoxicillin-pot clavulanate 875-125 mg tablet 1 tab PO BID 5 Days Qty: 10 0RF ibuprofen 600 mg tablet 600 mg PO Q6H PRN (Reason: pain) Qty: 30 0RF acetaminophen [Tylenol Extra Strength] 500 mg tablet 500 mg PO Q6H PRN (Reason: pain) Qty: 30 0RF No Action albuterol sulfate 2.5 mg /3 mL (0.083 %) solution for nebulization 1 amp inhalation Q6H PRN (Reason: Shortness Of Breath Or Wheezing) sertraline 100 mg tablet 2 tab PO BID Flovent HFA 110 mcg/actuation HFA aerosol inhaler 2 puff PO BID albuterol sulfate 90 mcg/actuation HFA aerosol inhaler 2 puff inhalation Q6H PRN (Reason: Shortness Of Breath Or Wheezing) clonazepam 0.5 mg tablet 0.25 mg PO BEDTIME Rx Instructions: administer 30 minutes before bedtime ibuprofen 600 mg tablet 600 mg PO TID clotrimazole 1 % cream 1 appl topical BID Qty: 45 3RF
[2023-03-25] MEDS: Acetaminophen 325 MG TABLET 975 MG PO (09:24)
== END 2023-03-25 09:28 | disposition home or self-care (01) ==
PROVIDERS: Emergency Provider Student in an Organized Health Care Education/Training Program; PCP General Practice
DX: H66.92 Otitis media, unspecified, left ear (principal); H92.02 Otalgia, left ear; Z79.899 Other long term (current) drug therapy
CPT/HCPCS: 99283

== ENCOUNTER 2023-10-11 22:43 | Inpatient (IN) | payer OTHER, SELFPAY ==
--- NOTE | ~2023-10-11 | XR_ITS ---
EXAMINATION: XR CHEST CLINICAL INFORMATION: Shortness of breath. COMPARISON: None available. TECHNIQUE: Frontal view of the chest was obtained. FINDINGS: No significant abnormality is noted involving the heart, lungs, mediastinum, bony thorax or soft tissues. XR/XR chest 1V IMPRESSION: Unremarkable examination.
--- NOTE | 2023-10-11 22:58 | ECG_ITS ---
Test Reason : SOB Blood Pressure : / mmHG Vent. Rate : 094 BPM Atrial Rate : 094 BPM P-R Int : 124 ms QRS Dur : 078 ms QT Int : 354 ms P-R-T Axes : 077 075 051 degrees QTc Int : 442 ms Sinus rhythm with marked sinus arrhythmia Possible Left atrial enlargement Nonspecific ST abnormality Abnormal ECG When compared with ECG of 04-OCT-2020 14:51, No significant change was found Referred By: Krupa Dickson Electronically Signed By:DIEGO ARCE MD
[2023-10-11 22:59] VITALS: BP 148/88; PULSE 110; O2SAT 97
[2023-10-11 23:00] VITALS: BP 137/90; PULSE 115
[2023-10-11] MEDS: EPINEPHrine 1 MG/ML VIAL 0.3 MG IM (23:00)
[2023-10-11] MEDS: methylPREDNISolone Sod Succ 125 MG/2 ML VIAL IVPUSH (23:01)
--- NOTE | 2023-10-11 23:02 | ED.ASTHMA ---
HPI - Asthma General Chief Complaint: Dyspnea Stated Complaint: sob,hx asthma Time Seen by Provider: 10/11/23 22:54 Source: EMS Mode of arrival: EMS Limitations: other History of Present Illness HPI Narrative: Patient comes to the emergency room complaining of significant shortness of breath/asthma exacerbation. In route to the hospital, patient was given a nebulization treatment, magnesium 2 g and and epinephrine injection. Here in the emergency room, patient is significantly short of breath, one-word sentences, in significant respiratory distress. Related Data Home Medications ?Medication ?Instructions ?Recorded ?Confirmed albuterol sulfate 90 mcg/actuation 2 puff inhalation Q6H PRN 10/01/20 10/16/22 aerosol inhaler Shortness Of Breath Or Wheezing clonazepam 0.5 mg tablet 0.25 mg PO BEDTIME 10/01/20 10/16/22 albuterol sulfate 2.5 mg/3 mL 1 amp inhalation Q6H PRN Shortness 04/12/21 10/16/22 (0.083 %) solution for nebulization Of Breath Or Wheezing fluticasone propionate 110 2 puff PO BID 04/12/21 10/16/22 mcg/actuation HFA aerosol inhaler (Flovent HFA) sertraline 100 mg tablet 2 tab PO BID 04/12/21 10/16/22 ibuprofen 600 mg tablet 600 mg PO TID 06/22/22 10/16/22 Previous Rx's ?Medication ?Instructions ?Recorded clotrimazole 1 % topical cream 1 appl topical BID #45 grams 10/16/22 acetaminophen 500 mg tablet 500 mg PO Q6H PRN pain #30 tabs 03/25/23 (Tylenol Extra Strength) amoxicillin 875 mg-potassium 1 tab PO BID 5 days #10 tabs 03/25/23 clavulanate 125 mg tablet ibuprofen 600 mg tablet 600 mg PO Q6H PRN pain #30 tabs 03/25/23 Allergies Allergy/AdvReac Type Severity Reaction Status Date / Time No Known Allergies Allergy Verified 10/11/23 23:08 [No Known Allergies*] Review of Systems Review of Systems: Yes Unobtainable due to mental condition PMFSH Past Medical History Medical History Steatosis, liver Cholelithiasis Low back pain History of blood transfusion Depression Asthma Insomnia Back pain Anxiety Morbid obesity Surgical History History of sleeve gastrectomy Hx of section Family History Family History Mother Hypertension Diabetes Father No problems noted. Sister Ovarian cancer Son No problems noted. Daughter No problems noted. Social History Social History Are you a primary career development specialist to a significant other at home: Yes (children 9+11) Do you presently have visiting nurse or other home services: No Alcohol intake: current Alcohol intake frequency: a few times a month Alcohol type: wine Patient Tobacco Use Status: Never used Tobacco Smoked in Last 30 Days: No Use of substances other than those prescribed or required for medical reasons: No Advance Directives: No Advance Directives Information Provided: Yes Patient : No service: No Current occupational status: employed Physical Exam Vital Signs: Vital Signs: Last Vital Signs Temp 98.2 F 10/11/23 23:05 Pulse 105 H 10/11/23 23:53 Resp 18 10/11/23 23:53 BP 137/90 H 10/11/23 23:05 Pulse Ox 92 10/11/23 23:05 O2 Del Method Room Air 10/11/23 23:05 BMI result Body Mass Index 37.5 Const: Other: Appearance: Alert. Oriented X3. In significant respiratory distress , ill-appearing Eyes: Pupils equal, round and reactive to light. ENT: Pharynx normal. Neck: Normal inspection. Neck supple. No lymph nodes noted. No crepitus CVS: Normal heart rate and rhythm. Pulses normal. Normal S1 and S2 Respiratory: Oxygen saturation 92%, minimal air movement, wheezing barely audible. Patient tripoding, accessory muscle usage Abdomen: Soft and nontender. No rigidity. No distention. Skin: Skin warm, clammy. Normal skin color. Normal skin turgor. Extremities: No lower extremity edema. No Lacerations. No Rash Neuro: CN 2 through 12 grossly intact Psych: Anxious, due to respiratory distress Course Course Course Narrative: -here in the emergency room arrival patient received a 2nd dose of epinephrine. All the patient's oxygen is 92%, they are very diminished breath sounds. Patient likely to decompensate. -patient receiving nebulization treatments, albuterol, ready received magnesium. Respiratory at bedside. We will try high-flow and check for symptomatic improvement. However, there is a possibility that patient may need to be intubated. We are keeping the patient very close watch Medications Administered Discontinued Medications Generic Name Dose Route Start Last Admin Trade Name Ronaldoq PRN Reason Stop Dose Admin Acetaminophen 650 mg 10/12/23 00:17 10/12/23 00:24 Acetaminophen 325 Mg Tablet PO 10/12/23 00:18 650 mg ONCE ONE Administration Albuterol Sulfate 7.5 mg/ 10 mg 10/11/23 23:10 10/11/23 23:15 Albuterol Sulfate 2.5 mg INHALE 10/11/23 23:11 10 mg ONCE ONE Administration Albuterol/Ipratropium 3 ml 10/11/23 23:41 10/11/23 23:51 Albuterol/Iprat 2.5/0.5mg 3 Ml Ampul.Neb INHALE 10/11/23 23:42 3 ml ONCE ONE Administration Epinephrine 0.3 mg 10/11/23 22:58 10/11/23 23:00 Epinephrine 1 Mg/Ml Vial IM 10/11/23 22:59 0.3 mg STAT STA Administration Sodium Chloride 1,000 mls @ 999 mls/hr 10/11/23 22:58 10/11/23 23:07 Ns IVCONT 10/11/23 23:58 999 mls/hr .Q1H1M ONE Administration Methylprednisolone Sodium Succinate 125 mg 10/11/23 22:54 10/11/23 23:01 Methylprednisolone Sod Succ 125 Mg/2 Ml Vial IVPUSH 10/11/23 22:55 125 mg ONCE ONE Administration Ondansetron HCl 4 mg 10/11/23 23:45 10/12/23 00:04 Ondansetron Hcl 4 Mg/2 Ml Vial IVPUSH 10/11/23 23:46 4 mg ONCE ONE Administration Medical Decision Making Medical Decision Making MDM Narrative: -patient had significant improvement on high-flow. Patient was eventually weaned down to nasal cannula. Patient doing okay on room air, occasionally needs 2 L of nasal cannula. -my interpretation of labs: Normal hematology, chemistry shows a potassium of 3.0, likely secondary to multiple nebulization treatments. Lactic acid within normal limits, LFTs normal, BNP negative. Troponin negative -my interpretation of chest x-ray: No obvious signs of pneumonia/infiltrates -patient still has residual wheezing. However, given how sick patient arrived to emergency room, discussed with the patient they would be best to keep her overnight. Patient agrees with plan. Patient keeps wheezing intermittently, responding well to nebulization treatments. -I discussed the patient with Dr. Wong, patient being admitted Differential Diagnosis Differential Diagnoses: The differential diagnosis associated with the presentation includes (Asthma, pneumonia, respiratory failure) Admission/Observation Consideration of admission/observation: Escalation of care including admission/observation considered Consult Healthcare Provider Management of the patient was discussed with: Hospitalist Lab Data MDM Lab Attestation statement: I reviewed the patient's lab results. 10/12/23 00:05 10/12/23 00:05 Labs: Lab Results 10/12/23 10/12/23 10/12/23 Range/Units 00:05 00:06 00:09 WBC 10.1 (4.8-10.8) X10*3/uL RBC 4.67 (4.20-5.50) X10*6/uL Hgb 13.8 (12.0-16.0) g/dl Hct 40.1 (37.0-47.0) % MCV 85.9 (80.0-98.0) fL MCH 29.6 (27.0-33.0) pg MCHC 34.4 (31.0-35.0) g/dl RDW 12.6 (11.0-16.0) % Plt Count 226 (160-400) X10*3/uL MPV 11.2 (9.4-12.3) fL Immature Gran % (Auto) 0.4 (0.0-0.4) % Neut % (Auto) 79.1 H (45-73) % Lymph % (Auto) 14.8 L (20-40) % [place] % (Auto) 3.3 (2-11) % Eos % (Auto) 2.0 (0-4) % Baso % (Auto) 0.4 (0-2) % Lymph # (Auto) 1.5 (1.2-4.9) X10*3/uL [place] # (Auto) 0.3 (0.1-1.2) X10*3/uL Eos # (Auto) 0.2 (0.0-0.4) X10*3/uL Baso # (Auto) 0.0 (0.0-0.2) X10*3/uL Abs Immat Gran (auto) 0.04 H (0.00-0.03) X10*3/uL Absolute Neuts (auto) 8.0 (2.0-8.3) x10*3/uL Absolute Nucleated RBC 0.000 (0.0-0.012) X10*3/uL Nucleated RBC % (auto) 0.0 (0.0-0.2) /100WBC PT 11.0 L (11.1-13.3) SEC INR 0.9 (0.9-1.1) VBG pH 7.30 L (7.32-7.43) VBG pCO2 54 mmHg VBG pO2 47 mmHg VBG HCO3 27 H (22-26) mmol/L VBG O2 Saturation 71.0 % VBG Base Excess -0.2 mmol/L Sodium 145 (135-145) mmol/L Potassium 3.0 L (3.3-5.1) mmol/L Chloride 109 H (96-108) mmol/L Carbon Dioxide 24 (22-29) mmol/L Anion Gap 15 (12-20) BUN 17 H (9-16) mg/dL Creatinine 0.91 (0.5-1.4) mg/dL Estim Creat Clear Calc 103.2 Estimated GFR > 60 Random Glucose 211 H (60-115) mg/dL Lactic Acid 1.7 (0.5-2.0) mmol/L Calcium 8.9 (8.4-10.2) mg/dL Total Bilirubin 1.3 H (0.0-1.0) mg/dL Direct Bilirubin 0.4 (0.0-0.5) mg/dL AST 15 (5-31) U/L ALT 17 (0-31) U/L Alkaline Phosphatase 64 (39-117) U/L Troponin I High Sens < 2.7 (<3.5-17.0) ng/L B-Natriuretic Peptide < 10 (<100) pg/mL Total Protein 7.3 (6.5-8.0) g/dL Albumin 4.1 (3.5-5.0) g/dL COVID-19 (TIAN) Negative (Negative) COVID-19 Clin Com See Note Influenza Type A (GERMAN) Negative (Negative) Influenza Type B (GERMAN) Negative (Negative) Influenza A & B Note See Note Independent Interpretation I performed an independent interpretation of an: Plain X-Ray Radiology Impression Discussion of test interpretation with radiology: I have reviewed the radiologist's reading. Radiologist Impression: No significant abnormality is noted involving the heart, lungs, mediastinum, bony thorax or soft tissues. XR/XR chest 1V IMPRESSION: Unremarkable examination Independent Historian Clinical information obtained from an independent historian. History obtained from or confirmed by: EMS Critical Care Time Critical Care Time Critical Care Time: Yes Total Critical Care Time: 75 Attestation: I have personally provided critical care time. Time includes review of lab data, radiology results, discussion with consultants, and monitoring for potential decompensation. Intervention performed as documented. Discharge Plan Discharge Clinical Impression: Asthma with acute exacerbation Patient Disposition: Admitted As Inpatient Prescriptions: No Action albuterol sulfate 2.5 mg /3 mL (0.083 %) solution for nebulization 1 amp inhalation Q6H PRN (Reason: Shortness Of Breath Or Wheezing) sertraline 100 mg tablet 2 tab PO BID Flovent HFA 110 mcg/actuation HFA aerosol inhaler 2 puff PO BID amoxicillin-pot clavulanate 875-125 mg tablet 1 tab PO BID 5 Days Qty: 10 0RF ibuprofen 600 mg tablet 600 mg PO Q6H PRN (Reason: pain) Qty: 30 0RF acetaminophen [Tylenol Extra Strength] 500 mg tablet 500 mg PO Q6H PRN (Reason: pain) Qty: 30 0RF albuterol sulfate 90 mcg/actuation HFA aerosol inhaler 2 puff inhalation Q6H PRN (Reason: Shortness Of Breath Or Wheezing) clonazepam 0.5 mg tablet 0.25 mg PO BEDTIME Rx Instructions: administer 30 minutes before bedtime ibuprofen 600 mg tablet 600 mg PO TID clotrimazole 1 % cream 1 appl topical BID Qty: 45 3RF Print Language: Kyrgyz
[2023-10-11 23:05] VITALS: BP 137/90; PULSE 113; RESP 24; TEMP 36.8; O2SAT 92; BMI 37.5
[2023-10-11] MEDS: 0.9 % Sodium Chloride 1,000 ML 999 ML IVCONT (23:07)
[2023-10-11] MEDS: Albuterol Sulfate 7.5 MG, Albuterol Sulfate (0.083%) 2.5 MG 10 MG INHALE (23:15)
[2023-10-11 23:16] VITALS: PULSE 100; RESP 21; O2SAT 97
[2023-10-11 23:35] VITALS: PULSE 113; RESP 18; O2SAT 98
[2023-10-11] MEDS: Albuterol/Iprat 2.5/0.5MG 3 ML AMPUL.NEB INHALE (23:51)
[2023-10-11 23:53] VITALS: PULSE 105; RESP 18; O2SAT 97
[2023-10-12] VITALS (9 sets, daily range): BP systolic 111–124; BP diastolic 75–78; PULSE 83–97; RESP 14–24; TEMP 36.6–36.8; O2SAT 92–97
[2023-10-12] MEDS: ondansetron HCL 4 MG/2 ML VIAL IVPUSH (00:04)
[2023-10-12 00:14] LABS: MANUAL DIFF FLAG NO
[2023-10-12 00:17] LABS: Basophils Percent Auto 0.4 % (0-2); Eosinophils Absolute Auto 0.2 X10*3/uL (0.0-0.4); Hematocrit 40.1 % (37.0-47.0); Hemoglobin 13.8 g/dl (12.0-16.0); Imm Gran Abs Auto 0.04 X10*3/uL (0.00-0.03); Imm Gran Pct Auto 0.4 % (0.0-0.4); Lymphocytes Absolute Auto 1.5 X10*3/uL (1.2-4.9); Lymphocytes Percent Auto 14.8 % (20-40); Mean Corpuscular HGB Conc 34.4 g/dl (31.0-35.0); Mean Corpuscular Hemoglobin 29.6 pg (27.0-33.0); Mean Corpuscular Volume 85.9 fL (80.0-98.0); Mean Platelet Volume 11.2 fL (9.4-12.3); Monocytes Absolute Auto 0.3 X10*3/uL (0.1-1.2); Monocytes Percent Auto 3.3 % (2-11); Neutrophils Percent Auto 79.1 % (45-73); Platelet Count 226 X10*3/uL (160-400); Red Blood Count 4.67 X10*6/uL (4.20-5.50); Red Cell Distribution Width 12.6 % (11.0-16.0); White Blood Count 10.1 X10*3/uL (4.8-10.8)
[2023-10-12 00:17] LABS: Venous Blood Gas Refer to POC result
[2023-10-12 00:18] LABS: VBG Base Excess -0.2 mmol/L; VBG HCO3 27 mmol/L (22-26); VBG pCO2 54 mmHg; VBG pO2 47 mmHg
[2023-10-12 00:21] LABS: INTERNATIONAL NORM RATIO 0.9 (0.9-1.1)
[2023-10-12] MEDS: Acetaminophen 325 MG TABLET 650 MG PO (00:24)
[2023-10-12 00:29] LABS: Alanine Aminotransferase 17 U/L (0-31); Albumin Level 4.1 g/dL (3.5-5.0); Alkaline Phosphatase 64 U/L (39-117); Anion Gap 15 (12-20); Aspartate Amino Transferase 15 U/L (5-31); Bilirubin Direct 0.4 mg/dL (0.0-0.5); Bilirubin Total 1.3 mg/dL (0.0-1.0); Blood Urea Nitrogen 17 mg/dL (9-16); Calcium 8.9 mg/dL (8.4-10.2); Carbon Dioxide 24 mmol/L (22-29); Chloride 109 mmol/L (96-108); Creatinine Clr Calc Pharmacy 103.2; Estimated Glomerular Filt Rate > 60; Glucose Random 211 mg/dL (60-115); Sodium 145 mmol/L (135-145); Total Protein 7.3 g/dL (6.5-8.0)
[2023-10-12 00:29] LABS: Lactic Acid 1.7 mmol/L (0.5-2.0)
[2023-10-12 00:33] LABS: COVID-19 Test Negative (Negative); IDNOW Serial# 08D9AD1C; IDNOW Serial# 152EDE1D; Influenza A Negative (Negative); Influenza B2 Negative (Negative)
[2023-10-12 00:35] LABS: B Type Natriuretic Peptide < 10 pg/mL (<100)
[2023-10-12 00:41] LABS: Troponin-I High Sensitivity < 2.7 ng/L (<3.5-17.0)
[2023-10-12] MEDS: Potassium Chloride/H20 40 MEQ/100 ML PIGGYBACK 100 MEQ IV ×2 (01:24→02:21)
[2023-10-12] MEDS: 0.9 % Sodium Chloride 1,000 ML 999 ML IVCONT (01:59)
--- NOTE | 2023-10-12 02:00 | PC.NURSE ---
pt arrived via EMS for dhat started 2 days ago Hx of asthma. pt assessed, sob, insp/ext wheezes throughout lung humphreys, using accessory muscles, unable to speak, Nursing, Md and resp therapy in with pt. Pt placed on high flow oxygen , in the beginning was unable to tolerate the high flow,
--- NOTE | 2023-10-12 02:26 | PC.NURSE ---
2301 pt medicated per MAR
--- NOTE | 2023-10-12 02:28 | PC.NURSE ---
pt was taken off high flow. replaced with nasal canula to 2, pt reported increased sob, oxygen increased to 3, resp therapy in pt
[2023-10-12] MEDS: Albuterol/Iprat 2.5/0.5MG 3 ML AMPUL.NEB INHALE ×5 (02:33→20:02)
--- NOTE | 2023-10-12 03:09 | PM.IMHP ---
History of Present Illness Date of Service: 10/12/23 Attending physician on admission: Mona Saucedo Chief Complaint: Shortness of breath Noe Souza 43 years old woman with past medical history significant for asthma, obesity s/p sleeve gastrectomy and anxiety presents to the emergency department complaining of shortness a breath has been worsening since the morning associated with dry cough, chest tightness and wheezing. He also has been nauseous and vomiting. Denied headache, palpitations, abdominal pain or diarrhea. She tried nebs at home without improvement of symptoms. She did not report any acute gastrointestinal or genitourinary symptoms. Denies tobacco or marijuana smoking, alcohol abuse or illicit drug use. In the ED, she was found quite tachypneic and tachycardic. She is currently requiring 2 liters/minute supplemental oxygen via nasal cannula. She was initially placed on high-flow therapy. Blood workup showed no leukocytosis. Hemoglobin and platelets are normal. There is mild hypokalemia of 3.0. Renal function is normal. LFTs are essentially normal except for slight elevation of bilirubin. BNP is < 10 and troponin < 2.7. Venous blood gas showed pH of 3.30, pCO2 54. CXR is negative. ECG showed sinus arrhythmia and nonspecific ST abnormalities. ED tx: Solu-Medrol 125 mg IV, epinephrine 0.3 mg IM, albuterol X2, Zofran 4 mg IV, acetaminophen 620 mg PO, KCl IV and NS 1 L bolus. Review of Systems Review of Systems: All 12 systems were reviewed and normal except as noted in HPI. [facility] Medical History Steatosis, liver Cholelithiasis Low back pain History of blood transfusion Depression Asthma Insomnia Back pain Anxiety Morbid obesity Family History Mother Hypertension Diabetes Father No problems noted. Sister Ovarian cancer Son No problems noted. Daughter No problems noted. 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) Do you presently have visiting nurse or other home services: No Alcohol intake: current Alcohol intake frequency: a few times a month Alcohol type: wine Patient Tobacco Use Status: Never used Tobacco Smoked in Last 30 Days: No Use of substances other than those prescribed or required for medical reasons: No Advance Directives: No Advance Directives Information Provided: Yes Patient : No service: No Current occupational status: employed Meds Allergies Allergy/AdvReac Type Severity Reaction Status Date / Time No Known Allergies Allergy Verified 10/11/23 23:08 [No Known Allergies*] Active Medications: Current Medications Acetaminophen (Acetaminophen 325 Mg Tablet) 975 mg PO Q6H PRN PRN Reason: mild pain, headache or fever Albuterol Sulfate (Albuterol Sulfate (0.083%) 2.5 Mg/3 Ml Vial.Neb) 2.5 mg INHALE Q2H PRN PRN Reason: Shortness of Breath/Wheezing Albuterol/Ipratropium (Albuterol/Iprat 2.5/0.5mg 3 Ml Ampul.Neb) 3 ml INHALE RQ4H WHILE AWAKE [facility] Enoxaparin Sodium (Enoxaparin Sodium 40 Mg/0.4 Ml Syringe) 40 mg SUBCUT Q24H [facility] Methylprednisolone Sodium Succinate (Methylprednisolone Sod Succ 40 Mg/Ml Vial) 40 mg IVPUSH Q12H [facility] Ondansetron HCl (Ondansetron Hcl 4 Mg/2 Ml Vial) 4 mg IVPUSH Q8H PRN PRN Reason: Nausea and Vomiting Sodium Chloride (0.9 % Sodium Chloride Flush 3 Ml Syringe) 3 ml IVFLUSH QSHIFT [facility] Home Medications ?Medication ?Instructions ?Recorded ?Confirmed ?Last Taken ?Type albuterol sulfate 90 mcg/actuation 2 puff inhalation Q6H PRN 10/01/20 10/16/22 Unknown History aerosol inhaler Shortness Of Breath Or Wheezing clonazepam 0.5 mg tablet 0.25 mg PO BEDTIME 10/01/20 10/16/22 Unknown History albuterol sulfate 2.5 mg/3 mL 1 amp inhalation Q6H PRN Shortness 04/12/21 10/16/22 Unknown History (0.083 %) solution for nebulization Of Breath Or Wheezing fluticasone propionate 110 2 puff PO BID 04/12/21 10/16/22 Unknown History mcg/actuation HFA aerosol inhaler (Flovent HFA) sertraline 100 mg tablet 2 tab PO BID 04/12/21 10/16/22 Unknown History ibuprofen 600 mg tablet 600 mg PO TID 06/22/22 10/16/22 Unknown History Physical Exam Vital Signs and Narrative: Vital Signs: Last Vital Signs Temp 98.2 F 10/11/23 23:05 Pulse 83 10/12/23 02:36 Resp 14 10/12/23 02:36 BP 124/75 10/12/23 01:53 Pulse Ox 96 10/12/23 01:53 O2 Del Method Aerosol Mask 10/12/23 01:53 O2 Flow Rate 3 10/12/23 01:53 BMI result Body Mass Index 37.5 Constitutional - Awake and Alert, No apparent distress. Acutely ill-appearing. Afebrile. Obese. Pleasant. Cooperative. Nasal cannula in place. HEENT - Pupils equally round. Normal sclerae. Heart - RRR. Lungs - Normal lung expansion, Normal respiratory effort, No respiratory distress. Tachypneic. End-expiratory wheezes bilaterally. No crackles or rhonchi. Abdomen - NT / ND; +BS; No rebound or guarding Extremities - no calf tenderness bilaterally, no swelling Musculoskeletal - Normal inspection, normal ROM Skin - Warm/Dry Neurological - Alert & oriented x3. No focal weakness grossly noted. Normal speech. Psychological - Appropriate affect Results Labs 10/12/23 00:05 10/12/23 00:05 Labs: Laboratory Results - last 24 hr 10/12/23 10/12/23 10/12/23 00:05 00:06 00:09 MCV 85.9 MCH 29.6 MCHC 34.4 RDW 12.6 Plt Count 226 MPV 11.2 Immature Gran % (Auto) 0.4 Neut % (Auto) 79.1 H Lymph % (Auto) 14.8 L [place] % (Auto) 3.3 Eos % (Auto) 2.0 Baso % (Auto) 0.4 Lymph # (Auto) 1.5 [place] # (Auto) 0.3 Eos # (Auto) 0.2 Baso # (Auto) 0.0 Abs Immat Gran (auto) 0.04 H Absolute Neuts (auto) 8.0 Absolute Nucleated RBC 0.000 Nucleated RBC % (auto) 0.0 PT 11.0 L INR 0.9 VBG pH 7.30 L VBG pCO2 54 VBG pO2 47 VBG HCO3 27 H VBG O2 Saturation 71.0 VBG Base Excess -0.2 Anion Gap 15 Estim Creat Clear Calc 103.2 Estimated GFR > 60 Random Glucose 211 H Lactic Acid 1.7 Calcium 8.9 Total Bilirubin 1.3 H Direct Bilirubin 0.4 AST 15 ALT 17 Alkaline Phosphatase 64 Troponin I High Sens < 2.7 B-Natriuretic Peptide < 10 Total Protein 7.3 Albumin 4.1 COVID-19 (TIAN) Negative COVID-19 Clin Com See Note Influenza Type A (GERMAN) Negative Influenza Type B (GERMAN) Negative Influenza A & B Note See Note Imaging Radiologist's Impressions: Impressions Chest X-Ray 10/11/23 23:49 IMPRESSION: Unremarkable examination. Assessment and Plan (1) Asthma with acute exacerbation: Qualifiers: Asthma severity: unspecified severity Asthma persistence: unspecified Qualified Code(s): J45.901 - Unspecified asthma with (acute) exacerbation Status: Acute (2) Respiratory failure with hypoxia and hypercapnia: Qualifiers: Chronicity: unspecified Qualified Code(s): J96.91 - Respiratory failure, unspecified with hypoxia; J96.92 - Respiratory failure, unspecified with hypercapnia Status: Acute (3) Obesity: Qualifiers: Obesity type: due to excess calories Obesity classification: adult class 2 (BMI 35 - 39.9) Body mass index: BMI 37.0-37.9 Status: Acute Plan Noe Souza 43 years old woman admitted with: Hypoxic and hypercapnic respiratory failure secondary to acute asthma exacerbation; likely underlying obstructive sleep apnea. Admit to hospitalist service. Telemetry. Pulse oximetry. Supplemental O2 to keep O2 sats > 90%. Avoid sedatives. Continue bronchodilator therapy and IV steroids. Pulmonology consult for further recommendations. Obesity s/p sleeve gastrectomy. BMI 37.5 kg/m2. Weight loss. Depression and anxiety. Continue sertraline. Code status: Full DVT prophylaxis: Lovenox Patient will need hospitalization for at least 2 midnights for respiratory failure treatment with supplemental oxygen, bronchodilator therapy Quality Stroke Does the patient have a stroke diagnosis?: No VTE Prior VTE?: No VTE Risk Level:: Medical - moderate - high VTE Device Contraindication: Treatment Not Indicated VTE Drug Contraindication: N/A - Med Ordered
--- NOTE | 2023-10-12 03:39 | PC.NURSE ---
pt oob with 1 assist to the commode, pt 02 increased after pt duoneb by resp therapy. pt reported feeling better
[2023-10-12 04:18] LABS: Amphetamine Screen Urine Not Detected (Not Detect); Barbiturates, Urine Not Detected (Not Detect); Benzodiazepines Screen Urine Not Detected (Not Detect); Buprenorphine Scr Not Detected (Not Detect); Cannabinoid Screen Urine Not Detected (Not Detect); Cocaine Screen Urine Not Detected (Not Detect); Fentanyl, urine Not Detected (Not Detect); Methadone Screen, Urine Not Detected (Not Detect); Opiate Screen Urine Not Detected (Not Detect); Oxycodone Screen Urine Not Detected (Not Detect); Phencyclidine Screen Urine Not Detected (Not Detect)
--- NOTE | 2023-10-12 04:24 | PC.NURSE ---
assumed care of pt at this time.
--- NOTE | 2023-10-12 04:52 | PC.NURSE ---
Addendum entered by Pa Ordonez 10/12/23 04:53: and iv potassium. Original Note: ivf infused prior to assuming care of this patient.
[2023-10-12] MEDS: Albuterol Sulfate (0.083%) 2.5 MG/3 ML VIAL.NEB INHALE (05:49)
[2023-10-12 07:04] LABS: Basophils Percent Auto 0.1 % (0-2); Hematocrit 37.6 % (37.0-47.0); Hemoglobin 12.9 g/dl (12.0-16.0); Imm Gran Abs Auto 0.03 X10*3/uL (0.00-0.03); Imm Gran Pct Auto 0.4 % (0.0-0.4); Lymphocytes Absolute Auto 0.4 X10*3/uL (1.2-4.9); Lymphocytes Percent Auto 4.9 % (20-40); MANUAL DIFF FLAG SCAN; Mean Corpuscular HGB Conc 34.3 g/dl (31.0-35.0); Mean Corpuscular Hemoglobin 29.3 pg (27.0-33.0); Mean Corpuscular Volume 85.3 fL (80.0-98.0); Mean Platelet Volume 11.3 fL (9.4-12.3); Monocytes Absolute Auto 0.1 X10*3/uL (0.1-1.2); Monocytes Percent Auto 1.1 % (2-11); Neutrophils Absolute Auto 6.9 x10*3/uL (2.0-8.3); Platelet Count 209 X10*3/uL (160-400); Red Blood Count 4.41 X10*6/uL (4.20-5.50); Red Cell Distribution Width 12.6 % (11.0-16.0); SCAN SMEAR FLAG 1; White Blood Count 7.4 X10*3/uL (4.8-10.8)
[2023-10-12 07:11] LABS: Neutrophils Percent Auto 6.9 % (45-73)
[2023-10-12 07:12] LABS: Venous Blood Gas Refer to POC result
[2023-10-12 07:15] LABS: VBG Base Excess -4.9 mmol/L; VBG HCO3 18 mmol/L (22-26); VBG pCO2 30 mmHg; VBG pH 7.39 (7.32-7.43); VBG pO2 118 mmHg
[2023-10-12 07:26] LABS: SLIDE REVIEW VERIFIED
[2023-10-12 07:41] LABS: Anion Gap 15 (12-20); Blood Urea Nitrogen 13 mg/dL (9-16); Calcium 8.5 mg/dL (8.4-10.2); Chloride 115 mmol/L (96-108); Creatinine Clr Calc Pharmacy 126.9; Estimated Glomerular Filt Rate > 60; Glucose Random 161 mg/dL (60-115); Sodium 142 mmol/L (135-145)
[2023-10-12 07:50] LABS: Carbon Dioxide 16 mmol/L (22-29); Potassium 4.3 mmol/L (3.3-5.1)
--- NOTE | 2023-10-12 10:13 | PHA.MEDREC ---
Pharmacy Consult ? Medication Reconciliation Pharmacy has completed the medication reconciliation. spoke with patient to confirm medications. She reports running out of her albuterol inhaler and she takes sertraline 100mg at bedtime instead of 200mg as prescribed.
[2023-10-12] MEDS: 0.9 % Sodium Chloride Flush 3 ML SYRINGE IVFLUSH ×2 (10:21→17:38)
[2023-10-12] MEDS: Enoxaparin Sodium 40 MG/0.4 ML SYRINGE SUBCUT (10:22)
[2023-10-12] MEDS: methylPREDNISolone Sod Succ 40 MG/ML VIAL IVPUSH ×2 (10:22→20:52)
[2023-10-12] MEDS: Acetaminophen 325 MG TABLET 975 MG PO (10:23)
--- NOTE | 2023-10-12 10:49 | PM.EVENT ---
Event Note Date of Service: 10/12/23 Event Note: Seen and evaluated this morning Still having wheezing No significant fluid overloaded on exam Pending cardiology eval Continue Duonevs and steroids Wean O2 down as tolerated Time Spent With Patient Time: Total time managing care of this patient today ____ minutes.
--- NOTE | 2023-10-12 11:14 | MHC.CM.PN ---
PT REPORTS SHE LIVES WITH HER S/O AND KIDS AND IS INDEPENDENT WITH CARE SHE SAYS SHE USES HER SON NEBULIZER PRN, BUT DOES NOT HAVE ONE OF HER OWN SHE COMPLETED A HCP TODAY NAMING HER S/O AND HIS SISTER HER AGENTS PCP: HERMAN ORTIZ [facility] DELIVERED DCP: HOME NO SERVICES VIA PRIVATE TRANSPORT
[2023-10-12] MEDS: Fluticasone/Vilanterol 100/25 BLST.W.DEV 1 PUFF INHALE (11:24)
[2023-10-12] MEDS: OXcarbazepine 300 MG TABLET PO (12:11)
--- NOTE | 2023-10-12 12:14 | PC.NURSE ---
Resumed care of patient at 1100, she is currently resting comfortably, pt denies pain, reports breathing treatment have been helpful but that she is just exhausted. Pt given PO medication per MAR. No complaints at this time, call huynh within reach.
--- NOTE | 2023-10-12 13:05 | P.CONPL_ITS ---
History of Present Illness History of Present Illness Consult date: 10/12/23 Chief complaint: Hypoxic respiratory failure Narrative: This is an inpatient pulmonary consulations. The patient is a 43 years old woman with past medical history significant for asthma, obesity s/p sleeve gastrectomy and anxiety presents to the emergency department complaining of shortness a breath has been worsening since the morning associated with dry cough, chest tightness and wheezing. He also has been nauseous and vomiting. Denied headache, palpitations, abdominal pain or diarrhea. She tried nebs at home without improvement of symptoms. Venous blood gas showed pH of 3.30, pCO2 54. CXR is negative. ECG showed sinus arrhythmia and nonspecific ST abnormalities. Had significant wheezing. In the ED tx: Solu-Medrol 125 mg IV, epinephrine 0.3 mg IM, albuterol X2, Zofran 4 mg IV, acetaminophen 620 mg PO, KCl IV and NS 1 L bolus. Review of Systems 2 Constitutional: Constitutional: Denies body ache(s), Denies chills, Denies fatigue, Denies fever(s), Denies headache(s), Denies malaise and Denies weakness Eyes: Eyes: Denies diplopia ENT: Denies vertigo, Denies dizziness, Denies otalgia, Denies headache(s), Denies mouth pain, Denies post nasal drip, Denies sinus pain, Denies sinus pressure, Denies sore throat and Denies throat swelling Cardiovascular: Cardiovascular: Denies chest pain, Denies syncope, Denies leg edema, Denies lightheadedness, Denies Loss of Consciousness, Denies palpitations and Reports dyspnea Respiratory: Respiratory: Reports cough, Reports dyspnea and Reports wheezing Gastrointestinal: Gastrointestinal: Reports abdominal pain, Denies hematochezia, Denies constipation, Denies diarrhea and Denies vomiting Musculoskeletal: Musculoskeletal: Reports no additional musculoskeletal complaints Neurologic: Denies confusion, Denies vertigo, Denies dizziness, Denies syncope, Denies headache(s) and Denies weakness Psychiatric: Psychiatric: Denies anxiety, Denies confusion and Denies depression Endocrine: Endocrine: Denies fatigue and Denies palpitations Allergic/Immunologic: Allergic/Immunologic: Denies throat swelling and Reports wheezing PMFSH Past Medical History Medical History Steatosis, liver Cholelithiasis Low back pain History of blood transfusion Depression Asthma Insomnia Back pain Anxiety Morbid obesity Family History Family History Mother Hypertension Diabetes Father No problems noted. Sister Ovarian cancer Son No problems noted. Daughter No problems noted. 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 (children 9+11) Do you presently have visiting nurse or other home services: No Alcohol intake: current Alcohol intake frequency: a few times a month Alcohol type: wine Patient Tobacco Use Status: Never used Tobacco service: No Current occupational status: employed Meds Allergies Allergy/AdvReac Type Severity Reaction Status Date / Time No Known Allergies Allergy Verified 10/11/23 23:08 [No Known Allergies*] Active Medications: Current Medications Acetaminophen (Acetaminophen 325 Mg Tablet) 975 mg PO Q6H PRN PRN Reason: mild pain, headache or fever Last Admin: 10/12/23 10:23 Dose: 975 mg Albuterol Sulfate (Albuterol Sulfate (0.083%) 2.5 Mg/3 Ml Vial.Neb) 2.5 mg INHALE Q2H PRN PRN Reason: Shortness of Breath/Wheezing Last Admin: 10/12/23 05:49 Dose: 2.5 mg Albuterol/Ipratropium (Albuterol/Iprat 2.5/0.5mg 3 Ml Ampul.Neb) 3 ml INHALE RQ4H WHILE AWAKE [facility] Last Admin: 10/12/23 11:18 Dose: 3 ml Clonazepam (Clonazepam 0.5 Mg Tablet) 0.5 mg PO BID PRN PRN Reason: Anxiety Enoxaparin Sodium (Enoxaparin Sodium 40 Mg/0.4 Ml Syringe) 40 mg SUBCUT Q24H [facility] Last Admin: 10/12/23 10:22 Dose: 40 mg Fluticasone/Vilanterol (Fluticasone/Vilanterol 100/25 Blst.W.Dev) 1 puff INHALE RDAILY [facility] Last Admin: 10/12/23 11:24 Dose: 1 puff Loratadine (Loratadine 10 Mg Tablet) 10 mg PO DAILY PRN PRN Reason: allergies Methylprednisolone Sodium Succinate (Methylprednisolone Sod Succ 40 Mg/Ml Vial) 40 mg IVPUSH Q12H [facility] Last Admin: 10/12/23 10:22 Dose: 40 mg Ondansetron HCl (Ondansetron Hcl 4 Mg/2 Ml Vial) 4 mg IVPUSH Q8H PRN PRN Reason: Nausea and Vomiting Oxcarbazepine (Oxcarbazepine 300 Mg Tablet) 300 mg PO DAILY [facility] Last Admin: 10/12/23 12:11 Dose: 300 mg Oxcarbazepine (Oxcarbazepine 300 Mg Tablet) 600 mg PO BEDTIME [facility] Polyethylene Glycol (Polyethylene Glycol 3350 17 Gm Powd.Pack) 17 gm PO DAILY [facility] Sertraline HCl (Sertraline Hcl 100 Mg Tablet) 100 mg PO BEDTIME [facility] Sodium Chloride (0.9 % Sodium Chloride Flush 3 Ml Syringe) 3 ml IVFLUSH QSHIFT [facility] Last Admin: 10/12/23 10:21 Dose: 3 ml Home Medications ?Medication ?Instructions ?Recorded ?Confirmed ?Last Taken ?Type clonazepam 0.5 mg tablet 0.5 mg PO BID PRN Anxiety 10/01/20 10/12/23 Unknown History albuterol sulfate 2.5 mg/3 mL 1 amp inhalation Q6H PRN Shortness 04/12/21 10/12/23 Unknown History (0.083 %) solution for nebulization Of Breath Or Wheezing sertraline 100 mg tablet 1 tab PO BEDTIME 04/12/21 10/12/23 Unknown History ibuprofen 800 mg tablet 800 mg PO TID PRN Pain 10/12/23 10/12/23 Unknown History loratadine 10 mg tablet 10 mg PO DAILY PRN allergies 10/12/23 10/12/23 Unknown History oxcarbazepine 300 mg tablet 300 mg PO DAILY 10/12/23 10/12/23 Unknown History oxcarbazepine 600 mg tablet 600 mg PO BEDTIME 10/12/23 10/12/23 Unknown History polyethylene glycol 3350 17 17 g PO DAILY constipation 10/12/23 10/12/23 Unknown History gram/dose oral powder Physical Exam 2 Vital Signs: Vital Signs: Last Vital Signs Temp 98.2 F 10/12/23 10:28 Pulse 96 10/12/23 11:18 Resp 18 10/12/23 11:18 BP 111/78 10/12/23 10:28 Pulse Ox 95 10/12/23 10:28 O2 Del Method Nasal Cannula 10/12/23 10:28 O2 Flow Rate 2 10/12/23 10:28 BMI result Body Mass Index 37.5 Const: Other: Constitutional : Awake, interactive, obese, not in distress Neck : Normal inspection, Supple Cardiovascular : RRR, no JVP, no lower extremity edema Respiratory : good bilateral air entry, no crackles, no wheezes or rhonchi Gastrointestinal: soft, lax, Normal bowel sounds, Non tender Skin : Warm, Dry Neurological : Alert & oriented x3, No focal deficit , CN 2-12 within normal General: No confusion Orientation/consciousness: No confusion Neuro: General: No confusion Results Laboratory Findings 10/13/23 05:47 10/13/23 05:47 ABG, PT/INR, D-dimer: PT/INR, D-dimer PT 11.0 SEC (11.1-13.3) L 10/12/23 00:05 INR 0.9 (0.9-1.1) 10/12/23 00:05 Abnormal lab findings: Abnormal Labs 10/12/23 10/12/23 10/12/23 00:05 00:09 06:50 Neut % (Auto) 79.1 H 6.9 L Lymph % (Auto) 14.8 L 4.9 L [place] % (Auto) 1.1 L Lymph # (Auto) 0.4 L Abs Immat Gran (auto) 0.04 H PT 11.0 L VBG pH 7.30 L VBG HCO3 27 H Potassium 3.0 L Chloride 109 H 115 H Carbon Dioxide 16 L BUN 17 H Random Glucose 211 H 161 H Total Bilirubin 1.3 H 10/12/23 07:00 Neut % (Auto) Lymph % (Auto) [place] % (Auto) Lymph # (Auto) Abs Immat Gran (auto) PT VBG pH VBG HCO3 18 L Potassium Chloride Carbon Dioxide BUN Random Glucose Total Bilirubin Assessment and Plan (1) Respiratory failure with hypoxia and hypercapnia: Qualifiers: Chronicity: unspecified Qualified Code(s): J96.91 - Respiratory failure, unspecified with hypoxia; J96.92 - Respiratory failure, unspecified with hypercapnia Status: Acute (2) Asthma with acute exacerbation: Qualifiers: Asthma persistence: unspecified Asthma severity: unspecified severity Qualified Code(s): J45.901 - Unspecified asthma with (acute) exacerbation Status: Acute Plan Likely switch to PO prednisone tomorrow with taper continue respiratory therapy Will likely need an out pt inlab sleep study Will f/U with outpt pulmonary Procedures Date of Service Date of Service: 10/14/23
[2023-10-12] MEDS: OXcarbazepine 300 MG TABLET 600 MG PO (20:52)
[2023-10-12] MEDS: Sertraline HCL 100 MG TABLET PO (20:52)
[2023-10-13 06:02] VITALS: BP 112/68; PULSE 96; RESP 15; TEMP 36.6; O2SAT 93
[2023-10-13 06:35] LABS: Hematocrit 37.6 % (37.0-47.0); Hemoglobin 12.7 g/dl (12.0-16.0); Mean Corpuscular HGB Conc 33.8 g/dl (31.0-35.0); Mean Corpuscular Hemoglobin 29.5 pg (27.0-33.0); Mean Corpuscular Volume 87.2 fL (80.0-98.0); Mean Platelet Volume 11.7 fL (9.4-12.3); Platelet Count 239 X10*3/uL (160-400); Red Blood Count 4.31 X10*6/uL (4.20-5.50); Red Cell Distribution Width 12.7 % (11.0-16.0); White Blood Count 9.5 X10*3/uL (4.8-10.8)
[2023-10-13 06:51] LABS: Anion Gap 17 (12-20); Blood Urea Nitrogen 12 mg/dL (9-16); Calcium 8.9 mg/dL (8.4-10.2); Carbon Dioxide 20 mmol/L (22-29); Chloride 111 mmol/L (96-108); Creatinine Clr Calc Pharmacy 120.4; Estimated Glomerular Filt Rate > 60; Glucose Random 186 mg/dL (60-115); Potassium 4.5 mmol/L (3.3-5.1); Sodium 143 mmol/L (135-145)
[2023-10-13 06:55] LABS: B Type Natriuretic Peptide 133 pg/mL (<100)
[2023-10-13] MEDS: Fluticasone/Vilanterol 100/25 BLST.W.DEV 1 PUFF INHALE (07:53)
[2023-10-13] MEDS: Albuterol/Iprat 2.5/0.5MG 3 ML AMPUL.NEB INHALE ×2 (07:53→11:05)
[2023-10-13 07:55] VITALS: PULSE 94; RESP 16; O2SAT 96
[2023-10-13] MEDS: 0.9 % Sodium Chloride Flush 3 ML SYRINGE IVFLUSH (08:40)
[2023-10-13] MEDS: methylPREDNISolone Sod Succ 40 MG/ML VIAL IVPUSH (08:40)
[2023-10-13] MEDS: polyethylene glycoL 3350 17 GM POWD.PACK PO (08:40)
[2023-10-13] MEDS: Enoxaparin Sodium 40 MG/0.4 ML SYRINGE SUBCUT (08:40)
[2023-10-13] MEDS: OXcarbazepine 300 MG TABLET PO (08:40)
[2023-10-13 10:19] VITALS: PULSE 114; RESP 18; O2SAT 93
[2023-10-13 11:06] VITALS: PULSE 80; RESP 18; O2SAT 95
--- NOTE | 2023-10-13 11:15 | P.DS_ITS ---
DS: Providers Provider Date of Service: 10/13/23 Date of admission: 10/12/23 02:14 Primary care physician: Unknown Physician Consults: 10/12/23 03:23 Consult to Pulmonology Routine Consulting Provider: [facility] Reason for consultation: Respiratory failure, asthma. Has provider been notified: No DS: Diagnosis Discharge Diagnosis (1) Asthma with acute exacerbation: Status: Acute (2) Respiratory failure with hypoxia and hypercapnia: Status: Acute (3) Obesity: Status: Acute DS: Summary Hospital Course Hospital Course: Admission note HPI Noe Souza 43 years old woman with past medical history significant for asthma, obesity s/p sleeve gastrectomy and anxiety presents to the emergency department complaining of shortness a breath has been worsening since the morning associated with dry cough, chest tightness and wheezing. He also has been nauseous and vomiting. Denied headache, palpitations, abdominal pain or diarrhea. She tried nebs at home without improvement of symptoms. She did not report any acute gastrointestinal or genitourinary symptoms. Denies tobacco or marijuana smoking, alcohol abuse or illicit drug use. In the ED, she was found quite tachypneic and tachycardic. She is currently requiring 2 liters/minute supplemental oxygen via nasal cannula. She was initially placed on high-flow therapy. Blood workup showed no leukocytosis. Hemoglobin and platelets are normal. There is mild hypokalemia of 3.0. Renal function is normal. LFTs are essentially normal except for slight elevation of bilirubin. BNP is < 10 and troponin < 2.7. Venous blood gas showed pH of 3.30, pCO2 54. CXR is negative. ECG showed sinus arrhythmia and nonspecific ST abn ormalities. ED tx: Solu-Medrol 125 mg IV, epinephrine 0.3 mg IM, albuterol X2, Zofran 4 mg IV, acetaminophen 620 mg PO, KCl IV and NS 1 L bolus. Hospital course The patient was admitted for treatment of acute hypoxic repiratory failure with some degree with CO2 retention maybe related to undiagnosed RICARDO who was treated with IV steroids, nebulizers with good response over the course of hospital stay as she was weaned off O2 supplement and able to ambulate maintaining her O2 in 90s with no reported dyspnea. To be discharged home on prednisone and steroid inhalor. advised to use prn Albuterol at home for the next few days and to follow with pulmonology as outpatient for further management and possible sleep study. Discharge plan Continue Prednisone as prescribed Inhalor twice daily Albuterol inhalor and nebulizer as needed Follow with Pulmonology as outpatient The patient made quicker than expected improvement and doesnt need 2 overnight hospital stay. Time Attestation Discharge Coordination Time (in mins): 36 Quality: Safe Use of Opioids Does Pt have an Active Cancer Diagnosis on the Problem List?: No Quality: Stroke Does the patient have a stroke diagnosis?: No Physical Exam Vital Signs: Vital Signs: Last Vital Signs Temp 97.8 F 10/13/23 06:02 Pulse 80 10/13/23 11:06 Resp 18 10/13/23 11:06 BP 112/68 10/13/23 06:02 Pulse Ox 93 10/13/23 10:19 O2 Del Method Room Air 10/13/23 10:19 O2 Flow Rate 2 10/12/23 10:28 BMI result Body Mass Index 37.5 Const: Other: Constitutional : Awake, interactive, obese, not in distress Neck : Normal inspection, Supple Cardiovascular : RRR, no JVP, no lower extremity edema Respiratory : good bilateral air entry, no crackles, no wheezes or rhonchi Gastrointestinal: soft, lax, Normal bowel sounds, Non tender Skin : Warm, Dry Neurological : Alert & oriented x3, No focal deficit , CN 2-12 within normal DS: Data Data Completed and Pending Completed studies during hospitalization [Text1]: Procedures Excision of Stomach, Percutaneous Endoscopic Approach, Vertical (04/19/21) Release Peritoneum, Percutaneous Endoscopic Approach (04/19/21) Labs on day of discharge: Laboratory Results - last 24 hr 10/13/23 05:47 WBC 9.5 RBC 4.31 Hgb 12.7 Hct 37.6 MCV 87.2 MCH 29.5 MCHC 33.8 RDW 12.7 Plt Count 239 MPV 11.7 Absolute Nucleated RBC 0.000 Nucleated RBC % (auto) 0.0 Sodium 143 Potassium 4.5 Chloride 111 H Carbon Dioxide 20 L Anion Gap 17 BUN 12 Creatinine 0.78 Estim Creat Clear Calc 120.4 Estimated GFR > 60 Random Glucose 186 H Calcium 8.9 B-Natriuretic Peptide 133 H Preliminary micro results at discharge 10/12/23 00:44 Blood Culture - Preliminary Blood - Venous No growth after 24 hours. 10/12/23 00:06 Blood Culture - Preliminary Blood - Venous No growth after 24 hours. Imaging Chest x-ray: Radiologist's impression: ITS Impressions Chest X-Ray 10/11/23 23:49 IMPRESSION: Unremarkable examination. Discharge Plan Discharge Anticipated Discharge Date/Time: 10/13/23 11:00 Patient Disposition: Home, Self-Care Discharge Diagnosis: Asthma exacerbation Referrals: Physician,Unknown J [Primary Care Provider] - 1 Week Discharge Medications: New prednisone 20 mg tablet 40 mg PO DAILY Qty: 8 0RF Continued albuterol sulfate 2.5 mg /3 mL (0.083 %) solution for nebulization 1 amp inhalation Q6H PRN (Reason: Shortness Of Breath Or Wheezing) sertraline 100 mg tablet 1 tab PO BEDTIME ibuprofen 800 mg tablet 800 mg PO TID PRN (Reason: Pain) oxcarbazepine 300 mg tablet 300 mg PO DAILY oxcarbazepine 600 mg tablet 600 mg PO BEDTIME polyethylene glycol 3350 17 gram/dose powder 17 g PO DAILY loratadine 10 mg tablet 10 mg PO DAILY PRN (Reason: allergies) budesonide-formoterol 80-4.5 mcg/actuation HFA aerosol inhaler 2 puff INHALATION BID Qty: 10.2 1RF albuterol sulfate 90 mcg/actuation HFA aerosol inhaler 2 puff inhalation Q4-6H PRN (Reason: Shortness Of Breath Or Wheezing) clonazepam 0.5 mg tablet 0.5 mg PO BID PRN (Reason: Anxiety) Rx Instructions: administer 30 minutes before bedtime Discharge Orders: Discharge Order (Routine); Ordered 10/13/23 Ordered By: Roshan Marino Diet: Advance to usual diet Activity on Discharge: As tolerated Stand Alone Forms: Patient Portal Discharge page, Work/School Release Print Language: Cuban Care Plan Goals: Read below Health Concerns: Read below Plan of Treatment: Read below Assessment: Continue Prednisone as prescribed Inhalor twice daily Albuterol inhalor and nebulizer as needed Follow with Pulmonology as outpatient
[2023-10-13 11:41] VITALS: BP 135/86; PULSE 104; RESP 20; TEMP 36.6; O2SAT 96
--- NOTE | 2023-10-13 12:03 | MHC.CM.PN ---
Pt is medically cleared for discharge home self-care, pt has arranged for her own transportation home.
== END 2023-10-13 11:38 | disposition home or self-care (01) | DRG 202 ==
LOC: HO.ED 10-12 01:28 → HO.EDOVER 10-12 02:21
PROVIDERS: Admitting Provider Internal Medicine; Emergency Provider Emergency Medicine; PCP General Practice; Visit Provider Student in an Organized Health Care Education/Training Program
DX: J45.901 Unspecified asthma with (acute) exacerbation (principal); J96.91 Respiratory failure, unspecified with hypoxia; J96.92 Respiratory failure, unspecified with hypercapnia; E66.09 Other obesity due to excess calories; G47.33 Obstructive sleep apnea (adult) (pediatric); F32.A Depression, unspecified; F41.9 Anxiety disorder, unspecified; Z20.822 Contact with and (suspected) exposure to COVID-19; Z68.37 Body mass index [BMI] 37.0-37.9, adult; Z98.84 Bariatric surgery status; Z79.899 Other long term (current) drug therapy
CPT/HCPCS: 36415; 71045; 80048; 80076; 80307; 82803; 83605; 83880; 84484; 85025; 85027; 85610; 87040; 87502; 87635; 93005; 94640; 99285; J0171; J1650; J2405; J2919; J3480

== ENCOUNTER → 2023-10-11 22:58 | Outpatient (BNV) | payer OTHER, SELFPAY | PROVIDERS: Admitting Provider Internal Medicine; Emergency Provider Emergency Medicine; Visit Provider Internal Medicine Cardiovascular Disease | DX: I49.9 Cardiac arrhythmia, unspecified (principal) | CPT/HCPCS: 93010 ==

== ENCOUNTER → 2023-10-12 02:14 | Outpatient (BNV) | payer OTHER, SELFPAY | PROVIDERS: Admitting Provider Internal Medicine; Emergency Provider Emergency Medicine; Visit Provider Internal Medicine | DX: J45.901 Unspecified asthma with (acute) exacerbation (principal); J96.91 Respiratory failure, unspecified with hypoxia; J96.92 Respiratory failure, unspecified with hypercapnia; E66.9 Obesity, unspecified | CPT/HCPCS: 99223; 99239; 99499 ==

== ENCOUNTER → 2023-10-12 02:14 | Outpatient (BNV) | payer OTHER, SELFPAY | PROVIDERS: Admitting Provider Internal Medicine; Emergency Provider Emergency Medicine; Visit Provider Hospitalist | DX: J96.91 Respiratory failure, unspecified with hypoxia (principal); J96.92 Respiratory failure, unspecified with hypercapnia; J45.901 Unspecified asthma with (acute) exacerbation | CPT/HCPCS: 99223 ==

== ENCOUNTER 2023-11-01 13:41 | Outpatient (REF) | payer OTHER, SELFPAY ==
[2023-11-02 08:48] LABS: Bacterial Vaginosis PCR NEGATIVE (Negative); Candida Group PCR NOT DETECTED (Not Detect); Candida glab krusei PCR NOT DETECTED (Not Detect); Trichomonas vaginalis PCR NOT DETECTED (Not Detect)
[2023-11-02 09:09] LABS: CT PCR NOT DETECTED (Not Detect.); NG PCR NOT DETECTED (Not Detect.)
[2023-11-09 00:39] LABS: HPV mRNA E6/E7 rflx Not Detected (Not Detected)
== END 2023-11-01 13:42 | disposition home or self-care (01) ==
LOC: HO.LAB 13:41
PROVIDERS: PCP General Practice; Visit Provider Advanced Practice Midwife
DX: Z01.419 Encounter for gynecological examination (general) (routine) without abnormal findings (principal); N89.8 Other specified noninflammatory disorders of vagina; E66.9 Obesity, unspecified; Z11.3 Encounter for screening for infections with a predominantly sexual mode of transmission; Z90.3 Acquired absence of stomach [part of]
CPT/HCPCS: 0352U; 0353U; 81025; 87624; 88142

== ENCOUNTER 2023-11-01 13:41 | Outpatient (AMB) | payer OTHER, SELFPAY ==
[2023-11-01 14:15] VITALS: BP 140/80; BMI 38.7
--- NOTE | 2023-11-01 14:15 | MHC.OFFVIS ---
Vital Signs 11/01/23 14:15 Height 5 ft 6 in Weight 240 lb BMI 38.7 BP 140/80 H Intake Visit Reasons: New patient IUD check up Oracle Technical Developer Required: No Information Interpreted: clinical only Technical Program Manager: Technical Program Manager Present Allergies No Known Allergies [No Known Allergies*] Allergy (Verified 11/01/23 14:18) Medication List - Last Reconciled 11/01/23 by Kala Hager CNM albuterol sulfate 1 amp inhalation Q6H PRN albuterol sulfate 90 mcg/actuation 2 puffs inhalation Q4-6H PRN budesonide-formoterol 80-4.5 mcg/actuation 2 puffs inhalation BID clonazepam 0.5 mg PO BID PRN ibuprofen 800 mg PO TID PRN loratadine 10 mg PO DAILY PRN oxcarbazepine 300 mg PO DAILY oxcarbazepine 600 mg PO BEDTIME polyethylene glycol 3350 17 grams PO DAILY prednisone 40 mg (2 x 20 mg) PO DAILY sertraline 1 tab PO BEDTIME Is last menstrual period known: No (IUD) Do you need a note to return to daycare/school/sports/work: No HPI HPI New patient IUD check up: Details: Patient was scheduled for an IUD checkup but review of the records were slightly unclear as to when she had recently had an annual exam with Pap. Turns out she did not have a Pap smear at that visit and the Pap smear in the records was from a couple of years ago to the best of my reading ability (the results seem to be copied over 3 different pages in the records and it was hard to say for sure that 1 page was continuing onto the next appropriately). Pap smear was done at this visit along with testing for STIs eyes vaginally. Those strings of the IUD are visible and appeared to be 1 of the IUDs that is progestin containing. By her history it would of been due for replacement years ago 8 years being the longest a Mirena is used for contraception these days. I recommend no unprotected sex until it is replaced. We did a test at the end of the visit that was negative.. She wants no more babies. She would like the Mirena replaced were what ever IUD is replaced she had thought that it might of been a ParaGard but she has not had menses in 10 years. She is working on weight loss weight loss management program she had bariatric surgery 2 years ago but has plateaued. ON LICENSE OF [facility] Medical History Obesity Steatosis, liver Cholelithiasis Low back pain History of blood transfusion Depression Asthma Insomnia Back pain Anxiety Morbid obesity Surgical History History of sleeve gastrectomy Hx of section Family History Mother Hypertension Diabetes Father No problems noted. Sister Ovarian cancer Son No problems noted. Daughter No problems noted. 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 care manager to a significant other at home: Yes (children 9+11) Do you presently have visiting nurse or other home services: No Alcohol intake: current Alcohol intake frequency: a few times a month Alcohol type: wine Patient Tobacco Use Status: Never used Tobacco service: No Current occupational status: employed Female Reproductive History Menstrual Age of Menarche: 13 Duration of menses: <3 days control method: copper IUCD (unsure ?) Date of last pap smear: 08/16/21 (negative) History of abnormal pap smear: No Physical Exam Vital Signs: Last Vital Signs BP 140/80 H 11/01/23 14:15 BMI result Body Mass Index 38.7 Const General: healthy appearing, comfortable, no acute distress, well developed and alert Nutritional Appearance: average body habitus Orientation/consciousness: patient oriented x3 Limitations: no limitations HEENT Head: Yes normocephalic Neck Neck: Yes normal visual inspection Chest Other: Breasts are extremely large and pendulous. Chest palpation & inspection: normal inspection of the chest Breast/axilla inspection: normal inspection of the breasts and normal inspection of the axillae Breast/axilla palpation: normal palpation of the breasts and normal palpation of the axillae Resp Effort & Inspection: normal respiratory effort GI Inspection: Yes normal to inspection, No Abdominal wall edema and No distended Palpation (GI): Soft to palpation and nontender Other: Normal external exam vagina pink and moist cervix pink smooth healthy mobile nontender unable to palpate uterus secondary to adipose but nontender there has an IUD string that appears to be a Mirena or Liletta extending from the os about 2 cm.. Good tone with Kegel. General: Yes bladder normal to palpation External Female Exam: normal external appearance and normal appearance of the urethra Speculum Exam - Vagina: normal appearance of the vagina, normal palpation and normal vaginal discharge Speculum Exam - Cervix: normal appearance of the cervix, normal palpation and nontender Bimanual exam- vagina & uterus: normal bimanual exam, normal palpation, bladder normal to palpation, consistency normal, normal palpation, uterine mobility normal, No Cervical tenderness present, non-tender and no cervical motion tenderness Bimanual Exam- Adnexa, other: normal adnexae, no masses, normal and No adnexal tenderness Neuro General: patient oriented x3 Results Reviewed Results Reviewed: Records from see reviewed challenging to read secondary to the way they were copied into the record. test done here at the end of the visit is negative. Assessment & Plan Assessment & Plan (1) Obesity (BMI 30-39.9): Code(s): E66.9 - Obesity, unspecified Category: Medical (2) Status post sleeve gastrectomy: Code(s): Z90.3 - Acquired absence of stomach [part of] Category: Surgical (3) Cervical cancer screening: Code(s): Z12.4 - Encounter for screening for malignant neoplasm of cervix Category: Medical (4) Encounter for routine checking of intrauterine contraceptive device (IUD): Comment: Patient really did not know which IUD she had she thought she had 1 with no hormones turns out she thinks it was the 1 with less hormones it appears she has a Mirena or equivalent which in for at least 10 years.... Code(s): Z30.431 - Encounter for routine checking of intrauterine contraceptive device Category: Medical (5) Encounter for screening examination for sexually transmitted disease: Code(s): Z11.3 - Encounter for screening for infections with a predominantly sexual mode of transmission Category: Medical Plan It was unclear in the records though possibly she may have Pap smear in 2021 that was negative but the records were very difficult to read as Pap smear itself seem to be distributed to 3 different pages of copy in the records She said she is getting mammograms to follow-up on a previous mammogram that showed some inflammation of her ducts. She has that scheduled She is meeting weekly with Emily in the weight management program and is struggling to get past a plateau. She is continuing with her efforts and re cited to me what she has been trying to do. Since it is not clear exactly which IUD she has but it appears to be a hormone based 1 as it has caused amenorrhea for the last 10 years, I recommend she no longer depend on it for control and if she does have sex any time until this is her place she needs to use condoms. She wants it replaced because she does not want anymore children at this point she has a 12-year-old and a 13-year-old. So she will schedule replacement when she can. Her last intercourse was a couple of weeks ago. We will do a test now before she leaves as it is very difficult to palpate her abdomen and uterus.(secondary to obesity.) She has very very large pendulous breasts she is considering breast reduction but she is appropriately working on the weight loss 1st Coding Level of Care Code New Pt Prev Care 40-64y(73038) Diagnoses Obesity (BMI 30-39.9) E66.9 Status post sleeve gastrectomy Z90.3 Cervical cancer screening Z12.4 Encounter for routine checking of intrauterine contraceptive device (IUD) Z30.431 Encounter for screening examination for sexually transmitted disease Z11.3
== END 2023-11-01 15:22 | disposition home or self-care (01) ==
LOC: HO.HWSM 13:41
PROVIDERS: PCP General Practice; Visit Provider Advanced Practice Midwife
DX: Z01.419 Encounter for gynecological examination (general) (routine) without abnormal findings (principal); E66.9 Obesity, unspecified; Z32.02 Encounter for pregnancy test, result negative
CPT/HCPCS: 99386

== ENCOUNTER 2023-11-12 14:31 | Outpatient (AMB) | payer OTHER, SELFPAY ==
[2023-11-12 14:35] VITALS: BP 118/72; PULSE 100; O2SAT 97; BMI 38.6
--- NOTE | 2023-11-12 14:35 | A.OFFVIS_ITS ---
Vital Signs 11/12/23 14:35 Height 5 ft 6 in Weight 239 lb 3.225 oz BMI 38.6 BP 118/72 Blood Pressure Location Rt brachial Position Sitting Pulse 100 Pulse Source Pulse Oximeter Pulse Oximetry (%) 97 Oxygen Delivery Method Room Air Intake Visit Reasons: Asthma/Hypoxia Allergies No Known Allergies [No Known Allergies*] Allergy (Verified 11/12/23 14:40) HPI HPI Asthma/Hypoxia: Details: Maria Isabel is a pleasant 43 year old, never smoker, with underlying asthma, anxiety and obesity s/p gastric sleeve. She was referred by [facility] after admission in September due to acute respiratory failure with hypoxemia and hypercapnia secondary to asthma exacerbation. She arrived to the ED in respiratory distress, staff considered intubation however patient ultimately treated with high flow responded well and transitioned to nasal cannula. She was also treated with nebs, magnesium, and steroids, discharged without the need for supplemental oxygen. She reports needing emergent evaluation on one other occasion related to asthma however never required admission. She continues to report dyspnea on exertion and wheezing. She denies cough or chest tightness. She reports seasonal allergies, no recent allergy testing. She does have a dog at home. She uses a daily antihistamine with minimal improvement. 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 She reports asthma since childhood, never requiring intubations. She reports son with asthma, otherwise no pertinent family history. [facility] Medical History (Updated 11/13/23 @ 14:15 by Krupa King NP) Obesity Steatosis, liver Cholelithiasis Low back pain History of blood transfusion Depression Asthma Insomnia Back pain Anxiety Morbid obesity Surgical History History of sleeve gastrectomy Hx of section Family History Mother Hypertension Diabetes Father No problems noted. Sister Ovarian cancer Son No problems noted. Daughter No problems noted. Social History Are you a primary daycare provider to a significant other at home: Yes (children 9+11) Do you presently have visiting nurse or other home services: No Alcohol intake: current Alcohol intake frequency: a few times a month Alcohol type: wine Patient Tobacco Use Status: Never used Tobacco service: No Current occupational status: employed Female Reproductive History Menstrual Age of Menarche: 13 Review of Systems Const Denies chills, Denies excessive sweating, Denies fever(s), Denies headache(s) and Denies night sweats Eyes Denies dry eyes, Denies irritation and Denies itchy eyes ENT Reports Normal hearing present, Denies headache(s), Denies nasal congestion, Denies nasal discharge, Denies post nasal drip and Denies sore throat Card Denies chest pain, Denies chest pain at rest, Denies chest pain with activity, Denies claudication, Denies leg edema, Denies orthopnea and Denies paroxysmal nocturnal dyspnea Resp Denies chest congestion, Denies cough, Denies excessive phlegm production, Denies pain on inspiration, Denies pain with cough and Denies stridor Musc Denies myalgias Neuro Reports Normal hearing present and Denies headache(s) Endo Denies excessive sweating Paul/Lymph Denies lymphadenopathy Aller/Immun Denies itchy eyes and Denies seasonal rhinorrhea Physical Exam Vital Signs: Last Vital Signs Pulse 100 11/12/23 14:35 BP 118/72 11/12/23 14:35 Pulse Ox 97 11/12/23 14:35 Oxygen Delivery Method Room Air 11/12/23 14:35 BMI result Body Mass Index 38.6 Const General: cooperative, healthy appearing, comfortable, no acute distress, well developed and alert Nutritional Appearance: obese Orientation/consciousness: patient oriented x3 Limitations: no limitations HEENT Head: Yes normal to inspection, Yes normocephalic and Yes atraumatic Ears: hearing grossly normal bilaterally and external ears normal Eyes General: appearance normal, both eyes and all related structures Eyelids: Yes eyelids normal Sclerae: sclerae normal EOM: EOMs intact bilaterally Neck Neck: Yes normal visual inspection and Yes no lymphadenopathy Lymphatic: no lymphadenopathy noted Chest Chest palpation & inspection: normal inspection of the chest Resp Effort & Inspection: normal respiratory effort, able to speak in complete sentences, no audible wheezes, no cough, no stridor, not tachypneic, no tripod positioning and no use of accessory muscles Auscultation: diminished lung sounds Cardio Jugular venous distension: no JVD Rate: regular rate Rhythm: regular rhythm Skin Other: warm, dry General skin exam: no rashes or lesions noted Neuro General: patient oriented x3 Cranial nerves: Yes Normal hearing present Cognition (Neuro): normal cognition Gait exam (Neuro): Normal gait present Extrem General: Yes normal to inspection, Yes capillary refill normal, Yes no clubbing, cyanosis or edema and Yes no pedal edema Psych Appearance: grossly normal and well kempt Speech and movement: Normal speech and movement present and Clear speech present Affect: normal affect Attitude: cooperative Thought process: Normal thought process present Thought content: Normal thought content present Insight: Good insight present (Psych) Judgement: Good judgement present (Psych) Results Reviewed Results Reviewed: [address] [address] XRay Report Signed Patient: Maria Isabel Souza MR#: [id number] : 1980 Acct:[id number] Age/Sex: 43 / F ADM Date: 10/11/23 Loc: .ED Attending Dr: Ordering Physician: Krupa Dickson MD Date of Service: 10/11/23 Procedure(s): XR chest 1V Accession Number(s): [id number] cc: Krupa Dickson MD; Physician,Unknown ~ EXAMINATION: XR CHEST CLINICAL INFORMATION: Shortness of breath. COMPARISON: None available. TECHNIQUE: Frontal view of the chest was obtained. FINDINGS: No significant abnormality is noted involving the heart, lungs, mediastinum, bony thorax or soft tissues. XR/XR chest 1V IMPRESSION: Unremarkable examination. Dictated By: Jamie Villafana Signed By: <Electronically signed by Jamie Villafana in OV> 10/11/23 2356 DD/ TD/TT: Equipment Monitor Phototypesetting: Assessment & Plan Assessment & Plan (1) Asthma: Code(s): J45.909 - Unspecified asthma, uncomplicated Category: Medical (2) Environmental allergies: Code(s): Z91.09 - Other allergy status, other than to drugs and biological substances Category: Medical (3) Acute respiratory failure with hypercapnia: Code(s): J96.02 - Acute respiratory failure with hypercapnia Category: Medical (4) Daytime somnolence: Code(s): R40.0 - Somnolence Category: Medical (5) Loud snoring: Code(s): R06.83 - Snoring Category: Medical Plan Maria Isabel's symptoms are likely multifactorial with underlying moderate to severe asthma as well as underlying obstructive sleep apnea. She had recent admission due to acute respiratory failure with hypoxia secondary to asthma exacerbation. There was also some degree of CO2 retention possibly related to undiagnosed RICARDO, venous blood gas showed pH of 3.30, pCO2 54. She also reports loud snoring and daytime somnolence. No prior sleep study. Will send for in lab sleep study for thorough evaluation. Will also send for PFT and RAST. Patient reports suboptimal control on Symbicort 80, will stop and trial Trelegy. All questions were answered and patient is in agreement of plan. Will follow up to review results and response inhaler. Orders: Orders Complete Blood Count Auto Diff 11/12/23 Z91.09 - Other allergy status, other than to drugs and biological substances Immunoglobulin E 11/12/23 Z91.09 - Other allergy status, other than to drugs and biological substances RT PSG in-lab sleep study 11/12/23 J96.02 - Acute respiratory failure with hypercapnia, R06.83 - Snoring, R40.0 - Somnolence Resp Allergy Profile Region I 11/12/23 Z91.09 - Other allergy status, other than to drugs and biological substances PFT pulmonary function test Today J45.909 - Unspecified asthma, uncomplicated Medications: New albuterol sulfate 2.5 mg (3 mL) inhalation Q4-6H PRN 90 mL 0RF shortness of breath or wheezing nlrpjnagxjx-nvndfgick-bhsgizxx 100-62.5-25 mcg (Trelegy Ellipta) 1 inh inhalation DAILY 60 ea 3RF Discontinued budesonide-formoterol 80-4.5 mcg/actuation Discontinued Reason: Doctor's Order 2 puffs inhalation BID 10.2 grams 1RF Coding Level of Care Code New Pt Level 4 (13951) Diagnoses Asthma J45.909 Environmental allergies Z91.09 Acute respiratory failure with hypercapnia J96.02 Daytime somnolence R40.0 Loud snoring R06.83
== END 2023-11-12 15:09 | disposition home or self-care (01) ==
PROVIDERS: PCP General Practice; Referring Provider Hospitalist; Visit Provider Nurse Practitioner Family
DX: J45.909 Unspecified asthma, uncomplicated (principal); J96.02 Acute respiratory failure with hypercapnia; R40.0 Somnolence
CPT/HCPCS: 99204

== ENCOUNTER → 2023-11-12 14:31 | Outpatient (BNVA) | payer OTHER, SELFPAY | PROVIDERS: PCP General Practice; Referring Provider Hospitalist; Visit Provider Nurse Practitioner Family | DX: J96.02 Acute respiratory failure with hypercapnia (principal); J45.909 Unspecified asthma, uncomplicated; R40.0 Somnolence; R06.83 Snoring; Z91.09 Other allergy status, other than to drugs and biological substances | CPT/HCPCS: 99202 ==

== ENCOUNTER 2025-03-05 10:19 | Outpatient (REF) | payer OTHER, SELFPAY ==
--- NOTE | ~2025-03-05 | XR_ITS ---
EXAMINATION: XR THORACIC SPINE CLINICAL INFORMATION: mid back/LBP COMPARISON: None available. TECHNIQUE: 3 views of the thoracic spine were obtained. FINDINGS: Surgical clips are present in the left upper abdomen. Vertebral body height and alignment is preserved. No fractures are identified. XR/XR thoracic spine 3V IMPRESSION: Unremarkable thoracic spine. Electronically signed by: Prem Richard MD 03/05/2025 04:49 PM EDT
--- NOTE | ~2025-03-05 | XR_ITS ---
Exam: Five-view lumbar spine x-ray TECHNIQUE: AP, lateral, lateral spot, bilateral oblique views COMPARISON: None FINDINGS: There are 5 nonrib-bearing lumbar segments. Surgical clips are visible in the left upper quadrant. There is mild wedging of T12, likely physiologic. There is also endplate osteophyte at superior T12 vertebral body. T12-L1 demonstrates mild disc space narrowing. L1-2 demonstrates mild disc space narrowing. L2-3 demonstrated mild disc space narrowing. L3-4 demonstrate mild disc space narrowing with anterior osteophytes. L4-5: Unremarkable aside from small anterior osteophyte. L5-S1: Unremarkable. XR/XR lumbar spine 4V min IMPRESSION: Mild multilevel degenerative changes. Electronically signed by: Prem Richard MD 03/05/2025 04:51 PM EDT
== END 2025-03-05 10:20 | disposition home or self-care (01) ==
LOC: HO.XRAY 10:19
PROVIDERS: PCP General Practice; Visit Provider Internal Medicine
DX: M54.31 Sciatica, right side (principal); M54.32 Sciatica, left side; N62 Hypertrophy of breast
CPT/HCPCS: 72072; 72110

== ENCOUNTER → 2025-03-05 16:09 | Outpatient (BNV) | payer OTHER, SELFPAY | PROVIDERS: PCP General Practice; Visit Provider Radiology Diagnostic Radiology | DX: M54.50 Low back pain, unspecified (principal) | CPT/HCPCS: 72072; 72110 ==